=== PATIENT | female | born 1980 ===

== ENCOUNTER 2020-05-31 11:28 | Outpatient (REF) | payer OTHER, SELFPAY ==
[2020-05-31 13:49] LABS: MANUAL DIFF FLAG NO
[2020-05-31 13:58] LABS: Basophils Percent Auto 0.6 % (0-2); Eosinophils Absolute Auto 0.2 X10*3/uL (0.0-0.4); Eosinophils Percent Auto 3.6 % (0-4); Hematocrit 37.5 % (37-47); Hemoglobin 12.3 g/dl (12.0-16.0); Imm Gran Abs Auto 0.01 X10*3/uL (0.00-0.03); Imm Gran Pct Auto 0.2 % (0.0-0.4); Lymphocytes Absolute Auto 1.8 X10*3/uL (1.2-4.9); Lymphocytes Percent Auto 27.3 % (20-40); Mean Corpuscular HGB Conc 32.8 g/dl (31.0-35.0); Mean Corpuscular Hemoglobin 28.7 pg (27.0-33.0); Mean Corpuscular Volume 87.6 fL (80-98); Monocytes Absolute Auto 0.6 X10*3/uL (0.1-1.2); Monocytes Percent Auto 9.7 % (2-11); Neutrophils Absolute Auto 3.9 X10*3/uL (2.0-8.3); Neutrophils Percent Auto 58.6 % (45-73); Platelet Count 299 X10*3/uL (160-400); Red Blood Count 4.28 X10*6/uL (4.20-5.50); Red Cell Distribution Width 13.7 % (11.0-16.0); White Blood Count 6.6 X10*3/uL (4.8-10.8)
[2020-05-31 14:12] LABS: Glucose Urine UA NEG (NEG); Leukocyte Esterase Urine NEG (NEG); Nitrite Urine NEG (NEG); Specific Gravity - Urine 1.025 (1.005-1.025); Urine Blood 1+ (NEG); Urine Ketones NEG (NEG); Urine Protein NEG (NEG-TRACE)
[2020-05-31 14:15] LABS: Appearance Urine CLEAR; Color Urine YELLOW
[2020-05-31 14:30] LABS: Alanine Aminotransferase 15 U/L (0-31); Alkaline Phosphatase 57 U/L (39-117); Anion Gap 10 (12-20); Aspartate Amino Transferase 13 U/L (5-31); Bilirubin Total 0.2 mg/dL (0.0-1.0); Blood Urea Nitrogen 11 mg/dL (9-16); C Reactive Protein 0.08 mg/dL (< or = 0.50); Calcium 8.2 mg/dL (8.4-10.2); Carbon Dioxide 25 mmol/L (22-29); Chloride 105 mmol/L (96-108); Estimated Glomerular Filt Rate > 60; Glucose Fasting 102 mg/dL (60-99); Lipase 29 U/L (8-78); Potassium 4.3 mmol/l (3.3-5.1); Sodium 136 mmol/L (135-145); Total Protein 6.5 g/dL (6.5-8.0)
[2020-05-31 14:33] LABS: Squamous Epithelial Cell Urine 1+ /LPF; WBC Urine 0-2 /HPF (0-4)
== END 2020-05-31 11:29 | disposition home or self-care (01) ==
LOC: HO.10HDL 11:28
PROVIDERS: PCP Internal Medicine; Visit Provider Internal Medicine
DX: R10.9 Unspecified abdominal pain (principal); R30.0 Dysuria
CPT/HCPCS: 36415; 80053; 81001; 83690; 85025; 86140; 87086

== ENCOUNTER 2020-06-02 15:09 | Outpatient (REF) | payer OTHER, SELFPAY ==
[2020-06-04 12:01] LABS: BV Int Neg Control Negative (Negative); BV Int Pos Control Positive (Positive)
== END 2020-06-02 15:10 | disposition home or self-care (01) ==
LOC: HO.LAB 15:09
PROVIDERS: PCP Internal Medicine; Visit Provider Advanced Practice Midwife
DX: R10.2 Pelvic and perineal pain (principal); R11.0 Nausea; N93.9 Abnormal uterine and vaginal bleeding, unspecified; Z11.8 Encounter for screening for other infectious and parasitic diseases; Z11.3 Encounter for screening for infections with a predominantly sexual mode of transmission
CPT/HCPCS: 81025; 87480; 87491; 87510; 87591; 87660; 99212

== ENCOUNTER 2020-06-21 15:05 | Outpatient (REF) | payer OTHER, SELFPAY ==
--- NOTE | 2020-06-21 15:08 | US_ITS ---
EXAMINATION: ULTRASOUND PELVIS COMPLETE CLINICAL INFORMATION: Pelvic and perineal pain. COMPARISON: None TECHNIQUE: Transabdominal and transvaginal ultrasound of the pelvis is performed. FINDINGS: The uterus is anteverted and anteflexed measuring 8.3 cm in length, 5.0 cm AP and 5.9 cm in transverse dimension. Endometrial thickness is 0.9 cm. The uterus is homogeneous echotexture. The cervix is unremarkable. Right ovary measures 3.2 x 2.1 x 2.4 cm and volume 8.5 mL. Previously right ovary measured 3.5 x 3.0 x 1.8 cm and volume 10 mL. Left ovary measures 3.9 x 2.5 x 2.1 cm and volume 10.7 mL. There is a small corpus luteal cyst measuring 1.5 x 1.3 x 1.4 cm. Also visualized are several small follicles. There is small amount of free fluid in left adnexa. US/US pelvic complete IMPRESSION: 1. Small corpus luteal cyst left ovary with minimal free fluid adjacent to the left ovary. 2. Unremarkable right ovary and uterus.
--- NOTE | 2020-06-21 15:08 | US_ITS ---
EXAMINATION: ULTRASOUND PELVIS COMPLETE CLINICAL INFORMATION: Pelvic and perineal pain. COMPARISON: None TECHNIQUE: Transabdominal and transvaginal ultrasound of the pelvis is performed. FINDINGS: The uterus is anteverted and anteflexed measuring 8.3 cm in length, 5.0 cm AP and 5.9 cm in transverse dimension. Endometrial thickness is 0.9 cm. The uterus is homogeneous echotexture. The cervix is unremarkable. Right ovary measures 3.2 x 2.1 x 2.4 cm and volume 8.5 mL. Previously right ovary measured 3.5 x 3.0 x 1.8 cm and volume 10 mL. Left ovary measures 3.9 x 2.5 x 2.1 cm and volume 10.7 mL. There is a small corpus luteal cyst measuring 1.5 x 1.3 x 1.4 cm. Also visualized are several small follicles. There is small amount of free fluid in left adnexa. US/US transvaginal IMPRESSION: 1. Small corpus luteal cyst left ovary with minimal free fluid adjacent to the left ovary. 2. Unremarkable right ovary and uterus.
== END 2020-06-21 15:06 | disposition home or self-care (01) ==
LOC: HO.US 15:05
PROVIDERS: Visit Provider Advanced Practice Midwife
DX: R10.2 Pelvic and perineal pain (principal)
CPT/HCPCS: 76830; 76856

== ENCOUNTER → 2020-06-30 15:10 | Outpatient (BNVA) | payer OTHER, SELFPAY | PROVIDERS: PCP Internal Medicine; Visit Provider Advanced Practice Midwife | DX: Z76.89 Persons encountering health services in other specified circumstances (principal) ==

== ENCOUNTER 2020-08-08 11:00 | Outpatient (REF) | payer OTHER, SELFPAY ==
[2020-08-09 09:20] LABS: BV Int Neg Control Negative (Negative); BV Int Pos Control Positive (Positive)
[2020-08-09 14:52] LABS: C. trachomatis RNA TMA NOT DETECTED (NOT DETECTED); N. gonorrhoeae RNA TMA NOT DETECTED (NOT DETECTED)
== END 2020-08-08 11:01 | disposition home or self-care (01) ==
LOC: HO.LAB 11:00
PROVIDERS: PCP Internal Medicine; Visit Provider Advanced Practice Midwife
DX: Z01.419 Encounter for gynecological examination (general) (routine) without abnormal findings (principal); Z20.2 Contact with and (suspected) exposure to infections with a predominantly sexual mode of transmission; N94.9 Unspecified condition associated with female genital organs and menstrual cycle; N39.3 Stress incontinence (female) (male); R10.2 Pelvic and perineal pain; N83.209 Unspecified ovarian cyst, unspecified side; Z88.6 Allergy status to analgesic agent; Z91.040 Latex allergy status
CPT/HCPCS: 36415; 81003; 87480; 87491; 87510; 87591; 87660

== ENCOUNTER → 2020-11-10 13:52 | Outpatient (BNVA) | payer OTHER, SELFPAY | PROVIDERS: PCP Internal Medicine; Visit Provider Urology ==

== ENCOUNTER → 2020-12-05 10:48 | Outpatient (BNVA) | payer OTHER, SELFPAY | PROVIDERS: PCP Internal Medicine; Visit Provider Advanced Practice Midwife ==

== ENCOUNTER 2021-02-01 13:28 | Emergency (ER) | payer OTHER, SELFPAY ==
[2021-02-01 13:41] VITALS: BP 113/66; PULSE 68; RESP 16; TEMP 36.8; O2SAT 98; BMI 26.5
--- NOTE | 2021-02-01 14:28 | ED.GENADULT ---
HPI - General Adult General Chief complaint: Skin/Abscess/Foreign Body Stated complaint: cyst Time Seen by Provider: 02/01/21 14:28 Source: patient Mode of arrival: ambulatory Limitations: no limitations History of Present Illness HPI narrative: 41-year-old female is here today for complaints of draining abscess from her left labia for the last few days. Patient reports that she has been having those problems before. Patient used warm soaks and drained some of the past. Patient denies any fever or chills. Patient denies any other symptoms. She reports that the area is very small. Onset (ago): day(s) (Three) Location: genitals (Left labia) Radiation: non-radiation Severity: mild Quality: burning Pain Consistency: intermittent Related Data Home Medications Medication Instructions Recorded Confirmed doxycycline hyclate 100 mg capsule 100 mg PO BID 06/02/20 Previous Rx's Medication Instructions Recorded metronidazole 500 mg tablet 500 mg PO BID 7 Days #14 tab 06/05/20 (Flagyl) metronidazole 500 mg tablet 500 mg PO BID 7 Days #14 tab 09/11/20 (Flagyl) cephalexin 500 mg capsule 500 mg PO QID 7 Days #28 cap 02/01/21 doxycycline hyclate 100 mg capsule 100 mg PO BID #14 cap 02/01/21 Allergies Allergy/AdvReac Type Severity Reaction Status Date / Time NSAIDS (Non-Steroidal Allergy Severe ANGIOEDEMA Verified 12/05/20 10:57 Anti-Inflamma [NSAIDS] aspirin [ASPIRIN] Allergy Intermediate SWELLING, Verified 12/05/20 10:57 anaphylaxis latex [LATEX] Allergy Intermediate RASH Verified 12/05/20 10:57 Review of Systems Review of Systems: Constitutional : No Weight loss, No Fever, No Chills, No Night Sweats, No Fatigue, No Malaise ENT/Mouth : No Hearing loss, No Ear Pain, No Nasal Congestion, No Sinus Pain, No Hoarseness, No sore throat, No Rhinorrhea, No Swallowing Difficulty Eyes: No Eye Pain, No Swelling, No Redness, No Foreign Body, No Discharge, No Vision Changes Cardiovascular : No Chest Pain, No SOB, No Dyspnea on Exertion, No Orthopnea, No Edema, No Palpitations Respiratory : No Cough, No Sputum, No Wheezing, No Smoke Exposure, No Dyspnea Gastrointestinal : No Nausea, No Vomiting, No Diarrhea, No Constipation, No abdominal Pain, No Hematochezia, No Melena Genitourinary : no irregular bleeding, No Dysuria, No Urinary Frequency, No Hematuria, No Urinary Incontinence, No Urgency, No Flank Pain, No Urinary Flow Changes, No Hesitancy, vaginal pain Musculoskeletal : No joint pain, No Myalgias, No Joint Swelling Skin : No Skin Lesions, No rash Yes all other systems are reviewed and are negative PMFSH Past Medical History Medical History Ruptured cyst of ovary Stress incontinence, female Surgical History History of loop electrical excision procedure (LEEP) Hx of dilation and curettage Hx of tubal ligation Family History Family History Paternal Grandmother Colon cancer Social History Social History Alcohol intake: never Advance Directives: Yes Advance Directives Information Provided: Yes Advance Directives on File: No Patient : No Sexual orientation: Straight/Heterosexual Physical Exam Vital Signs: Vital Signs: Last Vital Signs Temp 98.3 F 02/01/21 13:41 Pulse 68 02/01/21 13:41 Resp 16 02/01/21 13:41 BP 113/66 02/01/21 13:41 Pulse Ox 98 02/01/21 13:41 Body Mass Index 26.5 Const: General: healthy appearing, no acute distress and well developed Nutritional Appearance: well nourished Orientation/consciousness: patient oriented x3 Neck: Neck: Yes normal visual inspection, Yes full ROM and Yes trachea midline Thyroid: Thyroid normal Resp: Auscultation: clear to auscultation bilaterally Cardio: Rate: regular rate Rhythm: regular rhythm GI: Inspection: Yes normal to inspection and No distended Palpation (GI): No hepatosplenomegaly present Auscultation: normal bowel sounds : Speculum Exam - Vagina: other (Left labia abscess draining) Skin: General skin exam: elasticity normal, turgor normal and dry skin Neuro: General: patient oriented x3 Course Course Course Narrative: Left labial abscess that started 3 days ago. Patient reports that she was soaking it with warm water. She reports that the abscess was straining. 0.8 cm area with open center. On exam abscess is not draining hard and area is open. This abscess is too small to get I&D. Patient will be sent home with antibiotics and instructions to do warm soaks. She is agreeable to plan of care and verbalizes understanding of instructions. She was given the opportunity to ask questions all questions answered. Discharge Plan Discharge Clinical Impression: Abscess of skin or subcutaneous tissue Qualifiers: Site of cutaneous abscess: other site Qualified Code(s): L02.818 - Cutaneous abscess of other sites Patient Disposition: Home, Self-Care Instructions: Abscess (ED) Additional Instructions: You were seen here today for small abscess that is already draining. Please make sure that you do frequent warm soaks to promote the drainage. You were given 1st dose of antibiotic in the emergency department. Please follow-up with your PCP in 2-3 days if your symptoms will not get better or return to emergency department. You will also receive a script for antibiotics. Please finish all of the antibiotics. You may return to emergency department if your symptoms will get worse or if your experience any additional concerning symptoms. Prescriptions: New doxycycline hyclate 100 mg capsule 100 mg PO BID Qty: 14 RF: 0 cephalexin 500 mg capsule 500 mg PO QID 7 Days Qty: 28 RF: 0 No Action metronidazole [Flagyl] 500 mg tablet 500 mg PO BID 7 Days Qty: 14 RF: 0 metronidazole [Flagyl] 500 mg tablet 500 mg PO BID 7 Days Qty: 14 RF: 0 doxycycline hyclate 100 mg capsule 100 mg PO BID RF: 0 Referrals: Tra Diana MD [Primary Care Provider] - 2 days Interventions: ED Discharge Assessment Last Done: 02/01/21 14:59 Discharge Date/Time: 02/01/21 14:59
[2021-02-01] MEDS: cephALEXin 500 MG CAPSULE PO (14:57)
== END 2021-02-01 14:59 | disposition home or self-care (01) ==
PROVIDERS: Emergency Provider Internal Medicine; PCP Internal Medicine
DX: L02.818 Cutaneous abscess of other sites (principal)
CPT/HCPCS: 99283

== ENCOUNTER 2021-03-05 12:31 | Emergency (ER) | payer OTHER, SELFPAY | END 2021-03-05 17:14 | disposition left against medical advice (07) | PROVIDERS: Emergency Provider Emergency Medicine Emergency Medical Services; PCP Internal Medicine | DX: H92.03 Otalgia, bilateral (principal) ==

== ENCOUNTER 2021-05-01 15:27 | Outpatient (REF) | payer OTHER, SELFPAY ==
[2021-05-01 15:45] LABS: MANUAL DIFF FLAG NO
[2021-05-01 16:24] LABS: Basophils Percent Auto 0.5 % (0-2); Eosinophils Absolute Auto 0.2 X10*3/uL (0.0-0.4); Eosinophils Percent Auto 1.9 % (0-4); Hematocrit 38.6 % (37.0-47.0); Imm Gran Abs Auto 0.02 X10*3/uL (0.00-0.03); Imm Gran Pct Auto 0.3 % (0.0-0.4); Lymphocytes Absolute Auto 2.1 X10*3/uL (1.2-4.9); Lymphocytes Percent Auto 26.7 % (20-40); Mean Corpuscular HGB Conc 33.7 g/dl (31.0-35.0); Mean Corpuscular Volume 88.9 fL (80.0-98.0); Mean Platelet Volume 9.8 fL (9.4-12.3); Monocytes Absolute Auto 0.7 X10*3/uL (0.1-1.2); Monocytes Percent Auto 8.7 % (2-11); Neutrophils Absolute Auto 4.8 x10*3/uL (2.0-8.3); Neutrophils Percent Auto 61.9 % (45-73); Platelet Count 314 X10*3/uL (160-400); Red Blood Count 4.34 X10*6/uL (4.20-5.50); Red Cell Distribution Width 12.9 % (11.0-16.0); White Blood Count 7.7 X10*3/uL (4.8-10.8)
[2021-05-01 16:27] LABS: Appearance Urine CLEAR; Color Urine YELLOW; Glucose Urine UA NEG (NEG); Leukocyte Esterase Urine TRACE (NEG); Nitrite Urine NEG (NEG); PH 7.5 (5.0-8.0); Specific Gravity - Urine 1.015 (1.005-1.025); UACC Culture Trigger YES; Urine Blood NEG (NEG); Urine Ketones NEG (NEG); Urine Protein NEG (NEG-TRACE)
[2021-05-01 16:39] LABS: UACC CULT YES
[2021-05-01 16:41] LABS: RBC Urine 0-2 /HPF (0); Squamous Epithelial Cell Urine TRACE /LPF
[2021-05-01 16:43] LABS: Bacteria Urine TRACE /LPF
[2021-05-01 18:06] LABS: Anion Gap 10 (12-20); Blood Urea Nitrogen 15 mg/dL (9-16); C Reactive Protein 0.17 mg/dL (< or = 0.50); Calcium 8.9 mg/dL (8.4-10.2); Carbon Dioxide 27 mmol/L (22-29); Chloride 103 mmol/L (96-108); Estimated Glomerular Filt Rate > 60; Glucose Random 83 mg/dL (60-115); Potassium 4.1 mmol/L (3.3-5.1); Sodium 136 mmol/L (135-145)
== END 2021-05-01 15:28 | disposition home or self-care (01) ==
LOC: HO.LAB 15:27
PROVIDERS: PCP Internal Medicine; Visit Provider Internal Medicine
DX: R10.9 Unspecified abdominal pain (principal); R30.0 Dysuria
CPT/HCPCS: 36415; 80048; 81001; 85025; 86140; 87086

== ENCOUNTER 2021-05-02 13:43 | Outpatient (REF) | payer OTHER, SELFPAY ==
--- NOTE | ~2021-05-02 | US_ITS ---
EXAMINATION: US PELVIC US TRANSVAGINAL CLINICAL INFORMATION: Right lower quadrant pain. COMPARISON: Pelvic ultrasound 06/21/2020. TECHNIQUE: Ultrasound of the pelvis is performed using both transabdominal and transvaginal transducers along with Doppler. Transvaginal imaging is performed due to inadequate visualization transabdominally. FINDINGS: Uterus: The uterus is anteverted and measures 8.1 x 3.4 x 5.1 cm. The double wall endometrial thickness is 10-14 mm. The uterus is smooth in contour and has normal myometrial echogenicity. No visible fibroid. Adnexa: Both ovaries are visualized. There is normal color flow to the adnexa. There is no ovarian torsion. There is no pelvic ascites or fluid collection. Right ovary measures 3.0 x 2.0 x 1.7 cm for volume of 5.3 mL. Left ovary measures 4.0 x 2.0 x 2.0 cm for a volume of 8.4 mL which includes an echogenic 1.6 x 1.4 x 1.5 cm probable corpus luteum cyst. US/US pelvic and transvaginal IMPRESSION: No significant abnormality is seen. A corpus luteal cyst is noted in the left ovary. A similar sized cyst was noted on the left at the time of the prior study.
== END 2021-05-02 13:44 | disposition home or self-care (01) ==
LOC: HO.US 13:43
PROVIDERS: PCP Internal Medicine; Visit Provider Internal Medicine
DX: R10.31 Right lower quadrant pain (principal)
CPT/HCPCS: 76830; 76856

== ENCOUNTER 2021-05-07 13:28 | Outpatient (REF) | payer OTHER, SELFPAY ==
[2021-05-08 05:31] LABS: CT PCR NOT DETECTED (Not Detect.); NG PCR NOT DETECTED (Not Detect.)
[2021-05-08 09:22] LABS: BV Int Neg Control Negative (Negative); BV Int Pos Control Positive (Positive)
== END 2021-05-07 13:29 | disposition home or self-care (01) ==
LOC: HO.LAB 13:28
PROVIDERS: PCP Internal Medicine; Visit Provider Advanced Practice Midwife
DX: R10.2 Pelvic and perineal pain (principal); N73.9 Female pelvic inflammatory disease, unspecified
CPT/HCPCS: 81003; 81025; 87480; 87491; 87510; 87591; 87660; 96372; 99212; J0696

== ENCOUNTER → 2021-06-01 13:59 | Outpatient (BNVA) | payer OTHER, SELFPAY | PROVIDERS: PCP Internal Medicine; Visit Provider Advanced Practice Midwife | DX: N73.9 Female pelvic inflammatory disease, unspecified (principal) | CPT/HCPCS: 81003; 99212 ==

== ENCOUNTER 2021-08-13 13:46 | Outpatient (REF) | payer OTHER, SELFPAY ==
[2021-08-14 05:20] LABS: CT PCR NOT DETECTED (Not Detect.); NG PCR NOT DETECTED (Not Detect.)
[2021-08-14 09:43] LABS: BV Int Neg Control Negative (Negative); BV Int Pos Control Positive (Positive)
[2021-08-16 01:46] LABS: HPV mRNA E6/E7 rflx Not Detected (Not Detected)
== END 2021-08-13 13:47 | disposition home or self-care (01) ==
LOC: HO.LAB 13:46
PROVIDERS: PCP Internal Medicine; Visit Provider Advanced Practice Midwife
DX: Z01.411 Encounter for gynecological examination (general) (routine) with abnormal findings (principal); Z11.51 Encounter for screening for human papillomavirus (HPV); R10.2 Pelvic and perineal pain; Z20.2 Contact with and (suspected) exposure to infections with a predominantly sexual mode of transmission
CPT/HCPCS: 87480; 87491; 87510; 87591; 87624; 87660; 88142

== ENCOUNTER 2021-09-12 11:32 | Outpatient (REF) | payer OTHER, SELFPAY ==
--- NOTE | ~2021-09-12 | US_ITS ---
EXAMINATION: US PELVIS CLINICAL INFORMATION: Pelvic and perineal pain COMPARISON: None TECHNIQUE: Ultrasound of the pelvis is performed using both transabdominal and transvaginal transducers along with Doppler. Transvaginal imaging is performed due to inadequate visualization transabdominally. FINDINGS: Uterus: The uterus is anteverted, anteflexed and measures 8.2 cm in length, 4.9 mL in AP and 5.1 cm in transverse dimension. The double wall endometrial thickness is 1.3 cm. The uterus is smooth in contour and has normal myometrial echogenicity. No visible fibroid. Adnexa: Both ovaries are visualized. There is normal color flow to the adnexa. There is no ovarian torsion. There is no pelvic ascites or fluid collection. Right ovary measures 3.4 x 1.6 x 2.2 cm and volume 6.3 mL. Previously right ovary measured 3.0 x 2.0 was 1.7 cm. Left ovary measures 3.6 x 1.4 x 2.5 CM and volume 6.6 mL. There is anechoic cyst measuring 1.1 x 1.1 x 1.0 cm. There is small amount of free fluid in the cul-de-sac. US/US pelvic and transvaginal IMPRESSION: 1.1 cm cyst left ovary. The right ovary and the uterus is unremarkable. Small amount of free fluid in the cul-de-sac.
== END 2021-09-12 11:33 | disposition home or self-care (01) ==
LOC: HO.US 11:32
PROVIDERS: Visit Provider Advanced Practice Midwife
DX: R10.2 Pelvic and perineal pain (principal)
CPT/HCPCS: 76830; 76856

== ENCOUNTER → 2021-09-26 11:24 | Outpatient (BNVA) | payer OTHER, SELFPAY | PROVIDERS: PCP Internal Medicine; Visit Provider Advanced Practice Midwife | DX: Z13.89 Encounter for screening for other disorder (principal) ==

== ENCOUNTER 2022-01-29 15:00 | Outpatient (REF) | payer OTHER, SELFPAY ==
--- NOTE | ~2022-01-29 | MM_ITS ---
EXAMINATION: MM SCREENING DIGITAL BREAST TOMOSYNTHESIS, BILATERAL CLINICAL INFORMATION: Screening. Asymptomatic. The lifetime risk of breast cancer based on the Tyrer-Cuzick Model is 14%. COMPARISON: Mammography: None TECHNIQUE: Digital breast tomosynthesis is performed in both the craniocaudal and mediolateral oblique views along with computer-aided detection (CAD). Synthesized 2D images are generated from the tomosynthesis. FINDINGS: There are scattered areas of fibroglandular density (ACR BI-RADS breast composition Category b). There are no significant masses, abnormal calcifications, or other abnormalities. MM/MM tomosynthesis screening BI IMPRESSION: No mammographic evidence of malignancy. ASSESSMENT: BI-RADS 1: Negative RECOMMENDATION: Routine annual mammography screening. This patient's information was entered into a reminder system with a target due date for their next mammogram.
== END 2022-01-29 15:01 | disposition home or self-care (01) ==
LOC: HO.MAMMO 15:00
PROVIDERS: Visit Provider Internal Medicine
DX: Z12.31 Encounter for screening mammogram for malignant neoplasm of breast (principal)
CPT/HCPCS: 77063; 77067

== ENCOUNTER 2022-02-08 23:46 | Emergency (ER) | payer OTHER, SELFPAY ==
[2022-02-08 23:50] VITALS: BP 136/45; PULSE 83; RESP 18; TEMP 36.6; O2SAT 99; BMI 31.4
[2022-02-09 00:25] LABS: Hematocrit 36.7 % (37.0-47.0); Hemoglobin 12.7 g/dl (12.0-16.0); Mean Corpuscular HGB Conc 34.6 g/dl (31.0-35.0); Mean Corpuscular Hemoglobin 30.7 pg (27.0-33.0); Mean Corpuscular Volume 88.6 fL (80.0-98.0); Mean Platelet Volume 9.4 fL (9.4-12.3); Platelet Count 316 X10*3/uL (160-400); Red Blood Count 4.14 X10*6/uL (4.20-5.50); Red Cell Distribution Width 13.2 % (11.0-16.0); White Blood Count 9.5 X10*3/uL (4.8-10.8)
[2022-02-09 00:48] LABS: Alanine Aminotransferase 14 U/L (0-31); Albumin Level 4.1 g/dL (3.5-5.0); Alkaline Phosphatase 55 U/L (39-117); Anion Gap 15 (12-20); Aspartate Amino Transferase 14 U/L (5-31); Bilirubin Total 0.3 mg/dL (0.0-1.0); Blood Urea Nitrogen 12 mg/dL (9-16); Carbon Dioxide 23 mmol/L (22-29); Chloride 105 mmol/L (96-108); Creatinine Clr Calc Pharmacy 88.6; Estimated Glomerular Filt Rate > 60; Glucose Random 111 mg/dL (60-115); Potassium 3.8 mmol/L (3.3-5.1); Sodium 139 mmol/L (135-145); Total Protein 6.6 g/dL (6.5-8.0)
[2022-02-09 01:40] VITALS: BP 111/64; PULSE 64; RESP 16; TEMP 36.9; O2SAT 97
--- NOTE | 2022-02-09 02:17 | PC.NURSE ---
This pt left the ED at this time. I noticed her ambulating out of the department and stopped her to ask where she was going. She replied I've been sitting over there ([facility]) for hours (pt was placed in [facility] 19 minutes prior to this conversation) and I am in severe pain and sean has asked me how bad my pain is so Im leaving and I'll deal with the pain. I spent a lot of time encouraging the pt to remain in the ED for an evaluation but she insisted on leaving. i attempted to calmly explain to hr what she could expect next and why she hasn't seen a nurse yet, but she persistently talked over me, waved her hand in ym face and walked out of the department. Her gait was steady. her speech was clear and appropriate. No distress. No objective evidence of severe back pain while ambulating out of the ED.
== END 2022-02-09 02:20 | disposition left against medical advice (07) ==
PROVIDERS: Emergency Provider Emergency Medicine
DX: R10.9 Unspecified abdominal pain (principal)
CPT/HCPCS: 36415; 80053; 85027; 99283

== ENCOUNTER 2022-05-25 13:56 | Emergency (ER) | payer OTHER, SELFPAY ==
--- NOTE | ~2022-05-25 | XR_ITS ---
EXAMINATION: XR HAND, LEFT CLINICAL INFORMATION: Left hand pain. COMPARISON: None TECHNIQUE: PA, lateral, and oblique views of the left hand. An indicator arrow points to the first digit. FINDINGS: The bones and soft tissues are normal. No fracture. Alignment is anatomic. Joint spaces are maintained. No erosions or soft tissue calcifications. XR/XR hand LT min 3V IMPRESSION: Unremarkable left hand.
[2022-05-25 14:15] VITALS: PULSE 69; RESP 16; TEMP 36.8; O2SAT 98; BMI 23.6
--- NOTE | 2022-05-25 14:15 | ED_ITS ---
HPI - Skin/Abscess/Foreign Bdy General Chief complaint: Wound/Laceration <AMY Burr - Last Filed: 05/25/22 14:17> Stated complaint: l hand laceration at home <AMY Burr - Last Filed: 05/25/22 14:17> Time Seen by Provider: 05/25/22 15:14 <AMY Burr - Last Filed: 05/25/22 14:17> Source: patient <Arelis Soler NP - Last Filed: 05/25/22 17:04> Mode of arrival: ambulatory <Arelis Soler NP - Last Filed: 05/25/22 17:04> Limitations: no limitations <Arelis Soler NP - Last Filed: 05/25/22 17:04> History of Present Illness HPI narrative: 42-year-old female with no significant past medical history presents to the emergency department today after cutting her left hand with a knife opening a can. She denies any numbness or tingling in the left thumb or palmar region of the hand. She is unsure of last tetanus. <Arelis Soler NP - Last Filed: 05/25/22 17:04> MD complaint: laceration <Arelis Soler NP - Last Filed: 05/25/22 17:04> Onset (ago): hour(s) <Arelis Soler NP - Last Filed: 05/25/22 17:04> Tetanus up to date: unsure <Arelis Soler NP - Last Filed: 05/25/22 17:04> Location: L hand <Arelis Soler NP - Last Filed: 05/25/22 17:04> Severity: mild <Arelis Soler NP - Last Filed: 05/25/22 17:04> Severity scale (1-10): 3 <Arelis Soler NP - Last Filed: 05/25/22 17:04> Quality: aching <Arelis Soler NP - Last Filed: 05/25/22 17:04> Pain Consistency: constant <ANGELICA Baker Last Filed: 05/25/22 17:04> Relieving factors: none <Arelis Soler NP - Last Filed: 05/25/22 17:04> Exacerbating factors: palpation and movement <Arelis Soler NP - Last Filed: 05/25/22 17:04> Context: none <Arelis Soler NP - Last Filed: 05/25/22 17:04> Treatments prior to arrival: none <Arelis Soler NP - Last Filed: 05/25/22 17:04> Related Data Home medications: Home Medications Medication Instructions Recorded Confirmed No Known Home Meds 09/26/21 09/26/21 <AMY Burr - Last Filed: 05/25/22 14:17> Allergies/Adverse reactions: Allergies Allergy/AdvReac Type Severity Reaction Status Date / Time NSAIDS (Non-Steroidal Allergy Severe ANGIOEDEMA Verified 09/26/21 11:24 Anti-Inflamma [NSAIDS] aspirin [ASPIRIN] Allergy Intermediate SWELLING, Verified 09/26/21 11:24 anaphylaxis latex [LATEX] Allergy Intermediate RASH Verified 09/26/21 11:24 metronidazole Allergy rash Verified 09/26/21 11:24 <AMY Burr Last Filed: 05/25/22 14:17> Review of Systems Review of Systems: In addition to documented HPI above, the additional ROS was obtained: Constitutional: No Weight loss, No Fever, No Chills ENT/Mouth: No Ear Pain, No Nasal Congestion, No Sinus Pain, No Hoarseness, No sore throat, No Rhinorrhea, No Swallowing Difficulty Cardiovascular: No Chest Pain, No SOB Respiratory: No Cough, No Sputum, No Wheezing Gastrointestinal: No Nausea, No Vomiting, No Diarrhea, No Constipation, No Abdominal pain Genitourinary: No Dysuria, No Urinary Frequency, No Hematuria, No Urinary Incontinence/retention, No Urgency, No Flank Pain Musculoskeletal: No joint pain, No Myalgias, No Joint Swelling Skin: No Skin Lesions, No rash Neuro: No Weakness, No Numbness, No Paresthesias <ANGELICA Baker Last Filed: 05/25/22 17:04> Yes all other systems are reviewed and are negative <Arelis Soler NP - Last Filed: 05/25/22 17:04> [facility] Past Medical History Attestation statement: The following information was validated with the patient. <Arelis Soler NP - Last Filed: 05/25/22 17:04> Source: old records reviewed and obtained from family <Arelis Soler NP - Last Filed: 05/25/22 17:04> Medical History: Medical History Ruptured cyst of ovary Stress incontinence, female <AMY Burr - Last Filed: 05/25/22 14:17> Surgical History: Surgical History History of loop electrical excision procedure (LEEP) Hx of dilation and curettage Hx of tubal ligation <AYM Burr - Last Filed: 05/25/22 14:17> Family History Family History: Family History Paternal Grandmother Colon cancer <AMY Burr - Last Filed: 05/25/22 14:17> Social History Social History: Social History Alcohol intake: never Advance Directives: No Advance Directives Information Provided: No Sexual orientation: Straight/Heterosexual <AMY Burr - Last Filed: 05/25/22 14:17> Physical Exam Vital Signs: Vital Signs: Last Vital Signs Temp 98.2 F 05/25/22 14:15 Pulse 69 05/25/22 14:15 Resp 16 05/25/22 14:15 Pulse Ox 98 05/25/22 14:15 O2 Del Method 05/25/22 14:15 BMI result Body Mass Index 23.6 <AMY Burr - Last Filed: 05/25/22 14:17> Vital Signs: Last Vital Signs Temp 98.2 F 05/25/22 14:15 Pulse 69 05/25/22 14:15 Resp 16 05/25/22 14:15 Pulse Ox 98 12/10/22 14:15 O2 Del Method 05/25/22 14:15 BMI result Body Mass Index 23.6 <Arelis Soler [employer] - Last Filed: 05/25/22 17:04> Const: General: cooperative, alert and awake <Arelis Soler [employer] - Last Filed: 05/25/22 17:04> Nutritional Appearance: well nourished <Arelis Soler [employer] - Last Filed: 05/25/22 17:04> Orientation/consciousness: patient oriented x3 <Arelis Soler [employer] - Last Filed: 05/25/22 17:04> Limitations: no limitations <Arelis Soler [employer] - Last Filed: 05/25/22 17:04> HEENT: Head: Yes normal to inspection and Yes atraumatic <Arelis Soler [employer] - Last Filed: 05/25/22 17:04> Ears: hearing grossly normal bilaterally and external ears normal <Arelis Soler [employer] - Last Filed: 05/25/22 17:04> General nose exam: Normal external nose present <Arelis Soler [employer] - Last Filed: 05/25/22 17:04> Face and sinus: Yes normal facial exam <Arelis Soler [employer] - Last Filed: 05/25/22 17:04> Eyes: General: appearance normal, both eyes and all related structures <Arelis Soler [employer] - Last Filed: 05/25/22 17:04> Visual Edwards: normal visual edwards by confrontation <Arelis Soler [employer] - Last Filed: 05/25/22 17:04> Alignment and Position: alignment normal <Arelis Soler [employer] - Last Filed: 05/25/22 17:04> Periorbital: periorbital findings normal <Arelis Soler [employer] - Last Filed: 05/25/22 17:04> Eyelids: Yes eyelids normal <Arelis Soler [employer] - Last Filed: 05/25/22 17:04> Conjunctivae: conjunctivae normal <Arelis Soler [employer] - Last Filed: 05/25/22 17:04> Sclerae: sclerae normal <Arelis Soler [employer] - Last Filed: 05/25/22 17:04> Corneas: corneas normal <Arelis Soler [employer] - Last Filed: 05/25/22 17:04> Pupils: Equal, round and reactive pupils present <Arelis Soler, [employer] - Last Filed: 05/25/22 17:04> EOM: EOMs intact bilaterally <Arelis Soler, [employer] - Last Filed: 05/25/22 17:04> Neck: Neck: Yes normal visual inspection and Yes full ROM <Arelis Soler [employer] - Last Filed: 05/25/22 17:04> Chest: Chest palpation & inspection: normal inspection of the chest <Arelis Soler [employer] - Last Filed: 05/25/22 17:04> Resp: Effort & Inspection: normal respiratory effort and not labored <Arelis Soler [employer] - Last Filed: 05/25/22 17:04> Auscultation: clear to auscultation bilaterally, no crackles, no rhonchi and no wheezes <Arelis Soler [employer] - Last Filed: 05/25/22 17:04> Cardio: Rate: regular rate <Arelis Soler [employer] - Last Filed: 05/25/22 17:04> Rhythm: regular rhythm <Arelis Soler [employer] - Last Filed: 05/25/22 17:04> Skin: General skin exam: no rashes or lesions noted <Arelis Soler, N P - Last Filed: 05/25/22 17:04> Trauma: laceration (Web space between thumb and forefinger) <Arelis Soler [employer] - Last Filed: 05/25/22 17:04> Neuro: General: patient oriented x3 <Arelis Soler, [employer] - Last Filed: 05/25/22 17:04> Cranial nerves: Yes Equal, round and reactive pupils present <Arelis Soler [employer] - Last Filed: 05/25/22 17:04> Cognition (Neuro): normal cognition <Arelis Soler NP - Last Filed: 05/25/22 17:04> Gait exam (Neuro): Normal gait present <Arelis Soler NP - Last Filed: 05/25/22 17:04> Motor exam (neuro): 5/5 motor strength present throughout <Arelis Soler NP - Last Filed: 05/25/22 17:04> Extrem: General: Yes normal to inspection, Yes full ROM and Yes capillary refill normal <Arelis Soler NP - Last Filed: 05/25/22 17:04> Course Course Course Narrative: RME: 42-year-old female no significant medical history presents with a puncture wound to the left web space between 1st and 2nd digit. Patient is right-hand dominant. Tells me she was opening can of cherries and stabbed herself with a knife accidentally. Denies numbness and tingling. Tetanus status unknown however she thinks been more than 5 years Physical exam with puncture wound between 1st and 2nd finger in webspace. Point tenderness on exam. Plan: Due to point tenderness will obtain x-ray of left hand. Boostrix shot has been ordered. I suspect this will likely require wound suture. Patient sent back to waiting room <AMY Burr - Last Filed: 05/25/22 14:17> Medications Administered Discontinued Medications Generic Name Dose Route Start Last Admin Trade Name Freq PRN Reason Stop Dose Admin Diphtheria/Tetanus/Acell Pertussis 0.5 ml 05/25/22 14:15 05/25/22 15:21 Diphth,Pertus(Acell),Tet Adult 0.5 Ml Syringe IM 05/25/22 14:16 0.5 ml .ONCE ONE Administration Lidocaine HCl 2 ml 05/25/22 16:01 05/25/22 16:10 Lidocaine Hcl 1 % 20 Ml Vial INFILTRATI 05/25/22 16:02 2 ml ONCE ONE Administration <AMY Burr - Last Filed: 05/25/22 14:17> Medications Administered Discontinued Medications Generic Name Dose Route Start Last Admin Trade Name Freq PRN Reason Stop Dose Admin Diphtheria/Tetanus/Acell Pertussis 0.5 ml 05/25/22 14:15 05/25/22 15:21 Diphth,Pertus(Acell),Tet Adult 0.5 Ml Syringe IM 05/25/22 14:16 0.5 ml .ONCE ONE Administration Lidocaine HCl 2 ml 05/25/22 16:01 05/25/22 16:10 Lidocaine Hcl 1 % 20 Ml Vial INFILTRATI 05/25/22 16:02 2 ml ONCE ONE Administration <Arelis Soler NP - Last Filed: 05/25/22 17:04> Medical Decision Making Medical Decision Making MDM Narrative: 42-year-old female with no significant past medical history presents to the emergency department today after cutting her left hand in the webspace between her thumb and forefinger with a knife opening a can. Tetanus booster given. Wound was cleansed, anesthetized, and sutured. Patient tolerated without incident. Educated to return to the emergency department have the stitches removed in 7-10 days. Please return to the emergency department if you develop fever, chills, redness or drainage at the suture site, or any other concerning symptoms. Recommended follow-up with a primary care provider <Arelis Soler NP - Last Filed: 05/25/22 17:04> Procedures Laceration Laceration 1: Site: hand and other (web space between thumb and forefinger) <Arelis Soler NP - Last Filed: 05/25/22 17:04> Side (If applicable): left <Arelis Soler NP - Last Filed: 05/25/22 17:04> Size (cm): 1 <Arelis Soler NP - Last Filed: 05/25/22 17:04> Description: linear <Arelis Soler NP - Last Filed: 05/25/22 17:04> Depth: simple, single layer <Arelis Soler NP - Last Filed: 05/25/22 17:04> Local Anesthetic: lidocaine 1% <Arelis Soler NP - Last Filed: 05/25/22 17:04> Amount of anesthesia used (mL): 2 <Arelis Soler NP - Last Filed: 05/25/22 17:04> Pre-repair: wound explored and irrigated extensively <Arelis Soler NP - Last Filed: 05/25/22 17:04> Skin layer closed with: nylon <Arelis Soler NP - Last Filed: 05/25/22 17:04> Size (cm): 4-0 <Arelis Soler NP - Last Filed: 05/25/22 17:04> Number of sutures: 3 <Arelis Soler NP - Last Filed: 05/25/22 17:04> Technique: simple, interrupted <Arelis Soler NP - Last Filed: 05/25/22 17:04> Discharge Plan Discharge Clinical Impression: Laceration <AMY Burr - Last Filed: 05/25/22 14:17> Patient Disposition: Home, Self-Care <AMY Burr - Last Filed: 05/25/22 14:17> Instructions: Care For Your Stitches (ED) <AMY Burr - Last Filed: 05/25/22 14:17> Additional Instructions: You have 3 stitches closing your wound. Please have the stitches removed in 7-10 days either at your primary care office, urgency Department, or urgent care. Please return to the emergency department if you develop fever, chills, redness or drainage at the suture site, or any other concerning symptoms. Recommended follow-up with a primary care provider <AMY Burr - Last Filed: 05/25/22 14:17> Prescriptions: No Action No Known Home Meds <AMY Burr - Last Filed: 05/25/22 14:17> Referrals: [facility] Family Medicine [Provider Group] [facility] Primary Care[facility] [Provider Group] [facility] Primary [facility] [Provider Group] <AMY Burr - Last Filed: 05/25/22 14:17> Stand Alone Forms: Work/School Release <AMY Burr - Last Filed: 05/25/22 14:17> Print Language: Syriac <AMY Burr Last Filed: 05/25/22 14:17>
[2022-05-25] MEDS: Diphth,Pertus(ACell),Tet Adult 0.5 ML SYRINGE IM (15:21)
[2022-05-25] MEDS: Lidocaine HCl 1 % 20 ML VIAL INFILTRATI (16:10)
== END 2022-05-25 17:05 | disposition home or self-care (01) ==
PROVIDERS: Emergency Provider Emergency Medicine
DX: S61.412A Laceration without foreign body of left hand, initial encounter (principal); W26.0XXA Contact with knife, initial encounter; Y93.G1 Activity, food preparation and clean up; Y92.010 Kitchen of single-family (private) house as the place of occurrence of the external cause; Y99.9 Unspecified external cause status
CPT/HCPCS: 12001; 73130; 90471; 90715; 99282; 99284

== ENCOUNTER 2022-08-02 19:24 | Emergency (ER) | payer OTHER, SELFPAY ==
[2022-08-02 20:25] VITALS: BP 121/48; PULSE 62; RESP 16; TEMP 36.7; O2SAT 98; BMI 29.0
--- NOTE | 2022-08-02 20:29 | ED.SKABFB ---
HPI - Skin/Abscess/Foreign Bdy General Chief complaint: Skin/Abscess/Foreign Body Stated complaint: Cyst Time Seen by Provider: 08/03/22 01:30 Related Data Previous Rx's Medication Instructions Recorded mupirocin 2 % topical ointment 1 appl topical BID #15 grams 08/03/22 Allergies Allergy/AdvReac Type Severity Reaction Status Date / Time NSAIDS (Non-Steroidal Allergy Severe ANGIOEDEMA Verified 09/26/21 11:24 Anti-Inflamma [NSAIDS] aspirin [ASPIRIN] Allergy Intermediate SWELLING, Verified 09/26/21 11:24 anaphylaxis latex [LATEX] Allergy Intermediate RASH Verified 09/26/21 11:24 metronidazole Allergy rash Verified 09/26/21 11:24 PMFSH Past Medical History Medical History Ruptured cyst of ovary Stress incontinence, female Surgical History History of loop electrical excision procedure (LEEP) Hx of dilation and curettage Hx of tubal ligation Family History Family History Paternal Grandmother Colon cancer Social History Social History Alcohol intake: never Advance Directives: No Sexual orientation: Straight/Heterosexual Physical Exam Vital Signs: Vital Signs: Last Vital Signs Temp 98.0 F 08/02/22 20:25 Pulse 62 08/02/22 20:25 Resp 16 08/02/22 20:25 BP 121/48 L 08/02/22 20:25 Pulse Ox 98 08/02/22 20:25 O2 Del Method 08/02/22 20:25 BMI result Body Mass Index 29.0 Course Course Course Narrative: RME-20:30PM - 42yoF presenting to the ER with complaints of left groin pain due to an abscess. She was started on antibiotics although the antibiotics give her reaction and the groin abscess is worsening pain. She was scheduled for surgery although the surgery is not until the . She denies any other symptoms complaints or concerns at this time Plan: Patient to be evaluated [facility]. Discharge Plan Discharge Clinical Impression: Folliculitis Patient Disposition: Home, Self-Care Instructions: Folliculitis (ED) Additional Instructions: Local care as advised Apply Bactroban ointment twice daily till heals completely Prescriptions: New mupirocin 2 % ointment 1 appl topical BID Qty: 15 0RF Interventions: ED Discharge Assessment Last Done: 08/03/22 01:55 Discharge Date/Time: 08/03/22 01:55
--- NOTE | 2022-08-03 01:46 | ED_ITS ---
HPI - Skin/Abscess/Foreign Bdy General Chief complaint: Skin/Abscess/Foreign Body Stated complaint: Cyst Time Seen by Provider: 08/03/22 01:30 Source: patient Mode of arrival: ambulatory Limitations: no limitations History of Present Illness HPI narrative: Patient history of recurrent folliculitis a small pimple in left groin area for last 1 month took doxycycline for 1 week but swelling still there with slight t enderness no pus discharge no fever. Patient is concerned about the swelling which is not going away Related Data Previous Rx's Medication Instructions Recorded mupirocin 2 % topical ointment 1 appl topical BID #15 grams 08/03/22 Allergies Allergy/AdvReac Type Severity Reaction Status Date / Time NSAIDS (Non-Steroidal Allergy Severe ANGIOEDEMA Verified 09/26/21 11:24 Anti-Inflamma [NSAIDS] aspirin [ASPIRIN] Allergy Intermediate SWELLING, Verified 09/26/21 11:24 anaphylaxis latex [LATEX] Allergy Intermediate RASH Verified 09/26/21 11:24 metronidazole Allergy rash Verified 09/26/21 11:24 Review of Systems Review of Systems: Yes all other systems are reviewed and are negative [facility] Past Medical History Medical History Ruptured cyst of ovary Stress incontinence, female Surgical History History of loop electrical excision procedure (LEEP) Hx of dilation and curettage Hx of tubal ligation Family History Family History Paternal Grandmother Colon cancer Social History Social History Alcohol intake: never Advance Directives: No Sexual orientation: Straight/Heterosexual Physical Exam Vital Signs: Vital Signs: Last Vital Signs Temp 98.0 F 08/02/22 20:25 Pulse 62 08/02/22 20:25 Resp 16 08/02/22 20:25 BP 121/48 L 08/02/22 20:25 Pulse Ox 98 08/02/22 20:25 O2 Del Method 08/02/22 20:25 BMI result Body Mass Index 29.0 Skin: Full body images: 1. Small 0.5 cm by 0.5 cm folliculitis no surrounding erythema Medical Decision Making Medical Decision Making MDM Narrative: Patient has small folliculitis which been chronic with partial use of antibiotic I&D was done no pus discharge. Procedures Abscess I/D Site: lower extremity (Left groin) Side (if applicable): left Local Anesthetic: lidocaine 1% Amount of anesthesia used (mL): 0.5 Technique: incised with blade Sent for culture/gram staining?: No Packing used?: none Discharge Plan Discharge Clinical Impression: Folliculitis Patient Disposition: Home, Self-Care Instructions: Folliculitis (ED) Additional Instructions: Local care as advised Apply Bactroban ointment twice daily till heals completely Prescriptions: New mupirocin 2 % ointment 1 appl topical BID Qty: 15 0RF
== END 2022-08-03 01:55 | disposition home or self-care (01) ==
PROVIDERS: Emergency Provider Internal Medicine
DX: L73.9 Follicular disorder, unspecified (principal)
CPT/HCPCS: 10060; 99284

== ENCOUNTER 2022-09-17 09:32 | Outpatient (REF) | payer OTHER, SELFPAY ==
[2022-09-17 15:59] LABS: CT PCR NOT DETECTED (Not Detect.); NG PCR NOT DETECTED (Not Detect.)
== END 2022-09-17 09:33 | disposition home or self-care (01) ==
LOC: HO.LNP 09:32
PROVIDERS: Visit Provider Advanced Practice Midwife
DX: Z20.2 Contact with and (suspected) exposure to infections with a predominantly sexual mode of transmission (principal)
CPT/HCPCS: 0353U

== ENCOUNTER 2022-09-27 09:56 | Outpatient (REF) | payer OTHER, SELFPAY ==
[2022-09-27 10:24] LABS: MANUAL DIFF FLAG NO
[2022-09-27 10:53] LABS: Basophils Percent Auto 0.6 % (0-2); Eosinophils Absolute Auto 0.1 X10*3/uL (0.0-0.4); Eosinophils Percent Auto 2.9 % (0-4); Hematocrit 39.2 % (37.0-47.0); Hemoglobin 13.5 g/dl (12.0-16.0); Imm Gran Abs Auto 0.01 X10*3/uL (0.00-0.03); Imm Gran Pct Auto 0.2 % (0.0-0.4); Lymphocytes Absolute Auto 1.8 X10*3/uL (1.2-4.9); Lymphocytes Percent Auto 37.3 % (20-40); Mean Corpuscular HGB Conc 34.4 g/dl (31.0-35.0); Mean Corpuscular Volume 90.1 fL (80.0-98.0); Mean Platelet Volume 9.7 fL (9.4-12.3); Monocytes Absolute Auto 0.5 X10*3/uL (0.1-1.2); Monocytes Percent Auto 9.3 % (2-11); Neutrophils Absolute Auto 2.4 x10*3/uL (2.0-8.3); Neutrophils Percent Auto 49.7 % (45-73); Platelet Count 280 X10*3/uL (160-400); Red Blood Count 4.35 X10*6/uL (4.20-5.50); Red Cell Distribution Width 12.4 % (11.0-16.0); White Blood Count 4.8 X10*3/uL (4.8-10.8)
[2022-09-27 11:34] LABS: Alanine Aminotransferase 24 U/L (0-31); Albumin Level 4.3 g/dL (3.5-5.0); Alkaline Phosphatase 48 U/L (39-117); Anion Gap 13 (12-20); Aspartate Amino Transferase 18 U/L (5-31); Bilirubin Total 0.8 mg/dL (0.0-1.0); Blood Urea Nitrogen 14 mg/dL (9-16); C Reactive Protein 0.14 mg/dL (< or = 0.50); Calcium 8.8 mg/dL (8.4-10.2); Carbon Dioxide 22 mmol/L (22-29); Chloride 107 mmol/L (96-108); Estimated Glomerular Filt Rate > 60; Glucose Random 113 mg/dL (60-115); Potassium 4.2 mmol/L (3.3-5.1); Sodium 138 mmol/L (135-145); Total Protein 6.7 g/dL (6.5-8.0)
== END 2022-09-27 09:57 | disposition home or self-care (01) ==
LOC: HO.XRAY 09:56
PROVIDERS: PCP Internal Medicine; Visit Provider Internal Medicine
DX: R05.9 Cough, unspecified (principal); R04.2 Hemoptysis
CPT/HCPCS: 36415; 80053; 85025; 86140

== ENCOUNTER 2023-02-04 13:40 | Outpatient (REF) | payer OTHER, SELFPAY ==
--- NOTE | ~2023-02-04 | MM_ITS ---
EXAMINATION: MM SCREENING DIGITAL BREAST TOMOSYNTHESIS, BILATERAL CLINICAL INFORMATION: Screening. Asymptomatic. COMPARISON: Mammography: This study is compared with prior exams dating back to 2 2. TECHNIQUE: Digital breast tomosynthesis is performed in both the craniocaudal and mediolateral oblique views along with computer-aided detection (CAD). Synthesized 2D images are generated from the tomosynthesis. FINDINGS: There are scattered areas of fibroglandular density (ACR BI-RADS breast composition Category b). The patient has bilateral nipple rings. There are no significant masses, abnormal calcifications, or other abnormalities. MM/MM tomosynthesis screening BI IMPRESSION: No mammographic evidence of malignancy. ASSESSMENT: BI-RADS BI-RADS 1 - Negative RECOMMENDATION: Routine annual mammography screening. 1 year F/U This examination should not preclude the clinical evaluation of a suspicious palpable abnormality. This patient's information was entered into a reminder system with a target due date for their next mammogram.
== END 2023-02-04 13:41 | disposition home or self-care (01) ==
LOC: HO.MAMMO 13:40
PROVIDERS: PCP Internal Medicine; Visit Provider Internal Medicine
DX: Z12.31 Encounter for screening mammogram for malignant neoplasm of breast (principal)
CPT/HCPCS: 77063; 77067

== ENCOUNTER → 2023-02-04 14:00 | Outpatient (BNV) | payer OTHER, SELFPAY | PROVIDERS: PCP Internal Medicine; Visit Provider Radiology Diagnostic Radiology | DX: Z12.31 Encounter for screening mammogram for malignant neoplasm of breast (principal) | CPT/HCPCS: 77063; 77067 ==

== ENCOUNTER 2023-02-13 11:44 | Outpatient (AMB) | payer OTHER, SELFPAY ==
--- NOTE | 2023-02-13 11:47 | A.OFFVIS_ITS ---
Intake Intake Visit Reasons: follow up (last seen 2020) Intake Note: Patient is present for Follow Up Incontince stress Urology Med: None Antibiotic Allergy: None Blood Thinner: None Pharmacy: [facility] Patient has appt for Pelvic Floor therapy next week Allergies NSAIDS (Non-Steroidal Anti-Inflamma [NSAIDS] Allergy (Severe, Verified 09/17/22 09:39) ANGIOEDEMA aspirin [ASPIRIN] Allergy (Intermediate, Verified 09/17/22 09:39) SWELLING, anaphylaxis latex [LATEX] Allergy (Intermediate, Verified 09/17/22 09:39) RASH metronidazole Allergy (Verified 09/17/22 09:39) rash HPI HPI Comments History of Present Illness Details Evert is a pleasant female. She is a patient Dr. Diana. She is here following urologic issues - stress urinary incontinence Bengali translation provided in office by qualified medical insurance claims specialist Has upcoming pelvic floor physical therapy appointments Recommend follow-up with Dr. Pandya in 6 months for review if sling surgery required Stress urinary incontinence Ongoing for past 6 months Gynecologic history 2 full-term pregnancies, both required vacuum extraction for prolonged labor Uses 2-3 pads per day Leakage with cough, laugh, stress Discussed pelvic floor physical therapy Also has some degree of pelvic floor sensitivity Recommend 6 sessions with follow-up Understands may need sling surgery PFSH Medical History Ruptured cyst of ovary Stress incontinence, female Surgical History History of loop electrical excision procedure (LEEP) Hx of dilation and curettage Hx of tubal ligation Family History Paternal Grandmother Colon cancer Social History Alcohol intake: never Patient Tobacco Use Status: Never used Tobacco Sexual orientation: Straight/Heterosexual Gender identity: Female Female Reproductive History Menstrual Age of Menarche: 13 Review of Systems Const Denies chills and Denies fever(s) Card Reports no additional complaints and Denies syncope Resp Denies cough GI Denies abdominal pain and Denies heartburn Reports as per HPI and Denies change in libido Neuro Denies syncope Psych Denies change in libido Endo Denies change in libido Physical Exam Const General: cooperative, healthy appearing, comfortable and no acute distress Orientation/consciousness: patient oriented x3 HEENT Face and sinus: Yes normal facial exam Mouth: moist mucous membranes Neck Neck: Yes normal visual inspection, Yes full ROM and Yes trachea midline Chest Chest palpation & inspection: normal inspection of the chest Resp Effort & Inspection: normal respiratory effort, able to speak in complete sentences and no respiratory distress GI Inspection: Yes normal to inspection Back/Spine/Pelvis Cervical Spine: normal cervical lordosis Thoracic/Lumbar Spine: thoracic and lumbar spine normal to inspection Skin General skin exam: no rashes or lesions noted Neuro General: patient oriented x3, gait normal, tone normal and moves all extremities Extrem General: Yes normal to inspection and Yes capillary refill normal Assessment & Plan Assessment & Plan (1) Stress incontinence, female: Code(s): N39.3 - Stress incontinence (female) (male) Plan Complete PT Follow-up evaluation for sling procedure Patient Instructions: Imaging studies, laboratory and physical exam results were discussed and reviewed in detail. No major barriers to patient understanding were identified. An opportunity to ask questions regarding the treatment plan was provided. All questions were answered. The patient expressed understanding and agreement with the above treatment plan. The patient is aware they should contact our office by phone for worsening of their current condition or the appearance of new urologic symptoms. Compliance is encouraged with any medications and followup testing that is ordered. It is a privilege to participate in the urologic care of your patient. If you have any questions or concerns regarding treatment for the above conditions, or other urologic issues, please do not hesitate to contact me. The office telephone contact is [phone]. This note is constructed using voice recognition software. While every effort has been made to ensure accuracy truck technician errors may have been included. Yours sincerely, Dr Brad Galloway MD, [facility] - Urology Providers of Expert, Compassionate Care for the Genitourinary System Coding Level of Care Code Est Pt Level 3 (31881) Diagnoses Stress incontinence, female N39.3
== END 2023-02-13 11:57 | disposition home or self-care (01) ==
PROVIDERS: PCP Internal Medicine; Visit Provider Urology
DX: N39.3 Stress incontinence (female) (male) (principal)
CPT/HCPCS: 99213

== ENCOUNTER → 2023-02-13 11:44 | Outpatient (BNVA) | payer OTHER, SELFPAY | PROVIDERS: PCP Internal Medicine; Visit Provider Urology | DX: N39.3 Stress incontinence (female) (male) (principal) | CPT/HCPCS: 99212 ==

== ENCOUNTER 2023-04-11 15:00 | Outpatient (RCR) | payer OTHER, SELFPAY | END 2023-05-12 15:50 | disposition home or self-care (01) | LOC: HO.PT 15:00 | PROVIDERS: PCP Internal Medicine; Visit Provider Advanced Practice Midwife | DX: N39.3 Stress incontinence (female) (male) (principal) | CPT/HCPCS: 97112; 97140; 97162 ==

== ENCOUNTER 2023-04-22 14:28 | Outpatient (REF) | payer OTHER, SELFPAY ==
[2023-04-22 15:13] LABS: Influenza A PCR NEGATIVE (Negative); Influenza B PCR NEGATIVE (Negative); Resp Syncy Virus RNA Qual PCR NEGATIVE (Negative); SARS COV2 PCR INHOUSE NEGATIVE (Negative)
== END 2023-04-22 14:29 | disposition home or self-care (01) ==
LOC: HO.LNP 14:28
PROVIDERS: Visit Provider Internal Medicine
DX: R11.0 Nausea (principal); M79.10 Myalgia, unspecified site; R51.9 Headache, unspecified; Z11.52 Encounter for screening for COVID-19
CPT/HCPCS: 0241U

== ENCOUNTER 2023-09-04 12:23 | Outpatient (REF) | payer OTHER, SELFPAY ==
--- NOTE | ~2023-09-04 | XR_ITS ---
EXAMINATION: XR CERVICAL SPINE CLINICAL INFORMATION: Neck pain. COMPARISON: None available. TECHNIQUE: 7 views of the cervical spine. FINDINGS: Slight reversal of the normal cervical lordosis. Visualization of C7 is limited due to overlying soft tissues. Moderate cervical spondylosis with moderate loss of disc space height at C4-C5. XR/XR cervical spine 5V IMPRESSION: Moderate cervical spondylosis with moderate loss of disc space height at C4-C5.
== END 2023-09-04 12:24 | disposition home or self-care (01) ==
LOC: HO.XRAY 12:23
PROVIDERS: PCP Internal Medicine; Visit Provider Internal Medicine
DX: M54.2 Cervicalgia (principal)
CPT/HCPCS: 72050

== ENCOUNTER 2023-09-19 15:46 | Outpatient (AMB) | payer OTHER, SELFPAY ==
--- NOTE | 2023-09-19 15:46 | A.OFFVIS_ITS ---
Intake Visit Reasons: 6m follow up Intake Note: Former Patient of Dr Galloway is present for Follow Up Incontinence Stress Urology Med: None Antibiotic Allergy: None Blood Thinner: None [facility], 0 mL Vp Product Required: No Accompanied by: Significant Other Allergies NSAIDS (Non-Steroidal Anti-Inflamma [NSAIDS] Allergy (Severe, Verified 09/19/23 16:04) ANGIOEDEMA aspirin [ASPIRIN] Allergy (Intermediate, Verified 09/19/23 16:04) SWELLING, anaphylaxis latex [LATEX] Allergy (Intermediate, Verified 09/19/23 16:04) RASH metronidazole Allergy (Verified 09/19/23 16:04) rash HPI Comments Details: Evert is a 43 year old female who was last seen by Dr. Galloway for complaints of stress urinary incontinence. She also complains of pain with intercourse. Gynecologic history 2 full-term pregnancies, both required vacuum extraction for prolonged labor. Uses 2-3 pads per day, Leakage with cough, laugh, stress. Dr. Galloway discussed pelvic floor physical therapy. She attended 3 PT visits, I reviewed PT report, which noted some improvement in symptoms. I have discussed further evaluation with urodynamics. [facility] Medical History Stress incontinence, female Ruptured cyst of ovary Surgical History Hx of dilation and curettage Hx of tubal ligation History of loop electrical excision procedure (LEEP) Family History Paternal Grandmother Colon cancer Social History Alcohol intake: never Patient Tobacco Use Status: Never used Tobacco Sexual orientation: Straight/Heterosexual Gender identity: Female Female Reproductive History Menstrual Age of Menarche: 13 Review of Systems Const All systems reviewed & are unremarkable except as noted in HPI and below Reports no additional complaints Eyes Reports no additional complaints ENT Reports no additional complaints Card Reports no additional complaints Resp Reports no additional complaints GI Reports no additional complaints Reports as per HPI Musc Reports no additional complaints Skin/Breast Reports system reviewed and no additional complaints, except as documented Neuro Reports no additional complaints Psych Reports no additional complaints Endo Reports no additional complaints Nitin/Lymph Reports no additional complaints Aller/Immun Reports no additional complaints Results Reviewed Results Reviewed: Laboratory Last Values Urine pH (Auto) 6.5 09/19/23 15:53 Specific Winton (Auto) 1.015 09/19/23 15:53 Urine Protein (Auto) 0 mg/dL 09/19/23 15:53 Glucose (UA)(Auto) 0 mg/dL 09/19/23 15:53 Urine Ketones (Auto) Positive 09/19/23 15:53 Urine Blood (Auto) 0 Garfield/uL 09/19/23 15:53 Urine Nitrite (Auto) Negative 09/19/23 15:53 Urine Bilirubin (Auto) 0 mg/dL 09/19/23 15:53 Urine Urobilinogen (Auto) 0.2 mg/dL 09/19/23 15:53 Leukocyte Esterase (Auto) 0 Lorin/uL 09/19/23 15:53 Assessment & Plan Assessment & Plan (1) Stress incontinence, female: Code(s): N39.3 - Stress incontinence (female) (male) Category: Medical (2) Dyspareunia in female: Code(s): N94.10 - Unspecified dyspareunia Category: Medical (3) Pelvic pain: Code(s): R10.2 - Pelvic and perineal pain Category: Medical Plan Schedule urodynamics Orders: Orders AMB Post Void Residual by ultrasound 09/19/23 N39.8 - Other specified disorders of urinary system AMB Urinalysis Automated 09/19/23 Z13.9 - Encounter for screening, unspecified Patient Instructions: The patient had an opportunity to ask questions regarding treatment plan. The p atient expressed understanding and agreement with the above treatment plan. The patient is aware they should contact our office by phone for worsening of their current condition or the appearance of new symptoms. Compliance is encouraged with any medications and followup testing that is ordered. It is a privilege to be allowed the opportunity to participate in the urologic care of your patient. If you have any questions or concerns regarding treatment for the above conditions please do not hesitate to contact me. The office telephone contact is [phone]. This note is constructed in part using voice recognition software. While every effort has been made to ensure accuracy pulp machine operator errors may have been included. Yours sincerely, Jeffrey Braswell MD Coding Level of Care Code Est Pt Level 4 (05811) Diagnoses Stress incontinence, female N39.3 Dyspareunia in female N94.10 Pelvic pain R10.2
== END 2023-09-19 16:10 | disposition home or self-care (01) ==
PROVIDERS: PCP Internal Medicine; Visit Provider Urology
DX: N39.3 Stress incontinence (female) (male) (principal); N94.10 Unspecified dyspareunia; R10.2 Pelvic and perineal pain
CPT/HCPCS: 99214

== ENCOUNTER → 2023-09-19 15:46 | Outpatient (BNVA) | payer OTHER, SELFPAY | PROVIDERS: PCP Internal Medicine; Visit Provider Urology | DX: N39.3 Stress incontinence (female) (male) (principal); N94.10 Unspecified dyspareunia; R10.2 Pelvic and perineal pain | CPT/HCPCS: 81003; 99212 ==

== ENCOUNTER 2023-09-23 09:06 | Outpatient (REF) | payer OTHER, SELFPAY ==
[2023-09-23 18:04] LABS: CT PCR NOT DETECTED (Not Detect.); NG PCR NOT DETECTED (Not Detect.)
[2023-09-24 12:40] LABS: BV Int Neg Control Negative (Negative); BV Int Pos Control Positive (Positive)
[2023-09-26 21:08] LABS: HPV mRNA E6/E7 rflx Not Detected (Not Detected)
== END 2023-09-23 09:07 | disposition home or self-care (01) ==
LOC: HO.LNP 09:06
PROVIDERS: Visit Provider Advanced Practice Midwife
DX: Z01.419 Encounter for gynecological examination (general) (routine) without abnormal findings (principal); R10.2 Pelvic and perineal pain; N94.10 Unspecified dyspareunia
CPT/HCPCS: 0353U; 87480; 87510; 87624; 87660; 88142; 99396

== ENCOUNTER 2023-09-23 09:06 | Outpatient (AMB) | payer OTHER, SELFPAY ==
[2023-09-23 09:10] VITALS: BP 122/60; BMI 31.9
--- NOTE | 2023-09-23 09:10 | MHC.OFFVIS ---
Intake Vital Signs 09/23/23 09:10 Height 5 ft 3 in Weight 180 lb BMI 31.9 BP 122/60 Blood Pressure Location Lt brachial Intake Visit Reasons: Annual, Dyspareunia Efficiency Miner Required: No Allergies NSAIDS (Non-Steroidal Anti-Inflamma [NSAIDS] Allergy (Severe, Verified 09/19/23 16:04) ANGIOEDEMA aspirin [ASPIRIN] Allergy (Intermediate, Verified 09/19/23 16:04) SWELLING, anaphylaxis latex [LATEX] Allergy (Intermediate, Verified 09/19/23 16:04) RASH metronidazole Allergy (Verified 09/19/23 16:04) rash Medication List - Last Reconciled 09/23/23 by Elba Armas, DIRECTOR INPATIENT HEADACHE PROGRAM Is last menstrual period known: Yes Last menstrual period: 09/08/23 Post menopausal: No Patient : No Do you need a note to return to daycare/school/sports/work: No HPI HPI Comments History of Present Illness Details She is a premenopausal woman presenting for annual examination. Doing well with concerns: cramping discomforts, and after intimacy, she has a Urology evaluation soon. She tries to eat healthy and stays active with exercise. Regular monthly menses. Currently is sexually active. She denies vaginal itching and irritation. STI screening offered; she accepts. Denies family history of breast or ovarian. FH colon cancer. Last pap smear 2021, negative. History of LEEP. Mammogram: 01/2022. [facility] Medical History Stress incontinence, female Ruptured cyst of ovary Surgical History Hx of dilation and curettage Hx of tubal ligation History of loop electrical excision procedure (LEEP) Family History Paternal Grandmother Colon cancer Social History Alcohol intake: never Patient Tobacco Use Status: Never used Tobacco Sexual orientation: Straight/Heterosexual Gender identity: Female Female Reproductive History Menstrual Age of Menarche: 13 Date of last menstrual period: 09/08/23 Review of Systems Const All systems reviewed & are unremarkable except as noted in HPI and below Reports as per HPI Eyes Reports no additional complaints ENT Reports no additional complaints Card Reports no additional complaints Resp Reports no additional complaints GI Reports as per [facility] and Reports no additional complaints Reports as per HPI Musc Reports no additional complaints Skin/Breast Reports as per HPI Neuro Reports no additional complaints Psych Reports no additional complaints Endo Reports no additional complaints Nitin/Lymph Reports no additional complaints Aller/Immun Reports no additional complaints Physical Exam Vital Signs: Last Vital Signs BP 122/60 09/23/23 09:10 BMI result Body Mass Index 31.9 Const General: cooperative, healthy appearing, no acute distress, well developed and alert Orientation/consciousness: patient oriented x3 HEENT Head: Yes normal to inspection Eyes General: appearance normal, both eyes and all related structures Neck Neck: Yes normal visual inspection Thyroid: Thyroid normal Chest Chest palpation & inspection: normal inspection of the chest and other (no puckering, dimpling, peau de orange, retraction, discharge, masses) Breast/axilla inspection: normal inspection of the breasts Breast/axilla palpation: normal palpation of the breasts Resp Effort & Inspection: normal respiratory effort GI Inspection: Yes normal to inspection Palpation (GI): Soft to palpation Rectal Exam - Female: deferred General: Yes bladder normal to palpation External Female Exam: normal external appearance and normal appearance of the urethra Speculum Exam - Vagina: normal appearance of the vagina, normal palpation and normal vaginal discharge Speculum Exam - Cervix: normal appearance of the cervix, normal palpation and Other cervical findings present (Bled with Pap) Bimanual exam- vagina & uterus: normal bimanual exam, normal palpation, uterine size normal, bladder normal to palpation, normal palpation and non-tender Bimanual Exam- Adnexa, other: no masses Skin General skin exam: no rashes or lesions noted Rashes: no rashes Neuro General: patient oriented x3 Cognition (Neuro): normal cognition Extrem General: Yes normal to inspection Psych Attitude: cooperative Thought process: Normal thought process present Assessment & Plan Assessment & Plan (1) Encounter for well woman exam with routine gynecological exam: Code(s): Z01.419 - Encounter for gynecological examination (general) (routine) without abnormal findings Plan Discussed: Current recommendations for pap smears per ASCCP guidelines. Breast awareness and periodic breast exams. Maintain a healthy lifestyle including a well balanced diet and routine exercise. Use condoms for STI and prevention. Mammogram yearly. Order placed. Ultrasound planned, follow-up ultrasound in person. Patient verbalizes understanding and agrees to the plan of care. She was given opportunity to ask questions and all questions were answered to the best of my ability. RTO in one year for annual catering coordinator examination. This note is constructed using voice recognition software. While every effort has been made to ensure accuracy, demolition specialist errors may have been included. Orders: Orders Bacterial Vaginosis Panel Today N94.10 - Unspecified dyspareunia, R10.2 - Pelvic and perineal pain MM tomosynthesis screening BI Today Z12.31 - Encounter for screening mammogram for malignant neoplasm of breast US pelvic and transvaginal Today N94.10 - Unspecified dyspareunia, R10.2 - Pelvic and perineal pain CT NG by PCR Today N94.10 - Unspecified dyspareunia, R10.2 - Pelvic and perineal pain Pap Smear Today N94.10 - Unspecified dyspareunia, R10.2 - Pelvic and perineal pain Coding Level of Care Code Est Pt Prev Care 40-64y(12534) Diagnoses Encounter for well woman exam with routine gynecological exam Z01.419
== END 2023-09-23 09:42 | disposition home or self-care (01) ==
PROVIDERS: Visit Provider Advanced Practice Midwife
DX: Z01.419 Encounter for gynecological examination (general) (routine) without abnormal findings (principal)
CPT/HCPCS: 99396

== ENCOUNTER 2023-10-03 11:07 | Outpatient (REF) | payer OTHER, SELFPAY ==
--- NOTE | ~2023-10-03 | US_ITS ---
EXAMINATION: US PELVIS CLINICAL INFORMATION: Dyspareunia. COMPARISON: Pelvic ultrasound dated 09/14/2021. TECHNIQUE: Ultrasound of the pelvis is performed using both transabdominal and transvaginal transducers along with Doppler. Transvaginal imaging is performed due to inadequate visualization transabdominally. FINDINGS: Uterus: The uterus is anteverted and anteflexed. The uterus measures 8.8 x 5.4 x 6.5 cm. The double wall endometrial thickness is 1.0 mm. The uterus is smooth in contour and has normal myometrial echogenicity. No visible fibroid. Adnexa: Both ovaries are visualized. There is normal color flow to the adnexa. There is no ovarian torsion. A 1.6 cm simple left paraovarian cyst is seen. There is a small amount of nonspecific free fluid in the cul-de-sac. Right ovary measures 2.9 x 1.3 x 2.0 cm, volume 3.9 mL. Left ovary measures 3.3 x 1.5 x 2.0 cm, volume 5.0 mL. US/US pelvic and transvaginal IMPRESSION: 1. A 1.6 cm simple left paraovarian cyst is noted. 2. There is a small amount of nonspecific free fluid in the cul-de-sac.
== END 2023-10-03 11:08 | disposition home or self-care (01) ==
LOC: HO.US 11:07
PROVIDERS: PCP Internal Medicine; Visit Provider Advanced Practice Midwife
DX: N94.10 Unspecified dyspareunia (principal); R10.2 Pelvic and perineal pain
CPT/HCPCS: 76830; 76856

== ENCOUNTER 2023-10-22 09:42 | Outpatient (AMB) | payer OTHER, SELFPAY ==
[2023-10-22 09:51] VITALS: BP 110/74; BMI 31.9
--- NOTE | 2023-10-22 09:51 | MHC.OFFVIS ---
Vital Signs 10/22/23 09:51 Height 5 ft 3 in Weight 180 lb BMI 31.9 BP 110/74 Intake Visit Reasons: ultrasound follow up Driller'S Offsider Required: Yes Driller'S Offsider Language: Registered Respiratory Therapist Name: Domo [id number] Information Interpreted: non-clinical & clinical Design Quality Engineer: Design Quality Engineer Present Allergies NSAIDS (Non-Steroidal Anti-Inflamma [NSAIDS] Allergy (Severe, Verified 10/22/23 09:51) ANGIOEDEMA aspirin [ASPIRIN] Allergy (Intermediate, Verified 10/22/23 09:51) SWELLING, anaphylaxis latex [LATEX] Allergy (Intermediate, Verified 10/22/23 09:51) RASH metronidazole Allergy (Verified 10/22/23 09:51) rash Is last menstrual period known: Yes HPI Comments Details: Patient is here today for a follow up pelvic ultrasound, history of pelvic cramping at her last visit. She reports that cramping discomforts on her right not the left. She has frequency of urination and has a urology workup this month. [facility] Medical History Stress incontinence, female Ruptured cyst of ovary Surgical History Hx of dilation and curettage Hx of tubal ligation History of loop electrical excision procedure (LEEP) Family History Paternal Grandmother Colon cancer Social History Alcohol intake: never Patient Tobacco Use Status: Never used Tobacco Sexual orientation: Straight/Heterosexual Gender identity: Female Female Reproductive History Menstrual Age of Menarche: 13 Review of Systems Const All systems reviewed & are unremarkable except as noted in HPI and below Endo Reports no additional complaints Physical Exam Vital Signs: Last Vital Signs BP 110/74 10/22/23 09:51 BMI result Body Mass Index 31.9 Const General: cooperative, healthy appearing and no acute distress Psych Appearance: well kempt Attitude: cooperative Thought process: Normal thought process present Results Reviewed Results Reviewed: [address] [address] Ultrasound Report Signed Patient: Jag Mclean MR#: [id number] : 1980 Acct:[id number] Age/Sex: 43 / F ADM Date: 10/03/23 Loc: HO.US Attending Dr: Nelly Malone CNM Ordering Physician: Nelly Malone CNM Date of Service: 10/03/23 Procedure(s): US pelvic and transvaginal Accession Number(s): [id number] cc: Tra Diana MD; Nelly Malone CNM~ EXAMINATION: US PELVIS CLINICAL INFORMATION: Dyspareunia. COMPARISON: Pelvic ultrasound dated 09/14/2021. TECHNIQUE: Ultrasound of the pelvis is performed using both transabdominal and transvaginal transducers along with Doppler. Transvaginal imaging is performed due to inadequate visualization transabdominally. FINDINGS: Uterus: The uterus is anteverted and anteflexed. The uterus measures 8.8 x 5.4 x 6.5 cm. The double wall endometrial thickness is 1.0 mm. The uterus is smooth in contour and has normal myometrial echogenicity. No visible fibroid. Adnexa: Both ovaries are visualized. There is normal color flow to the adnexa. There is no ovarian torsion. A 1.6 cm simple left paraovarian cyst is seen. There is a small amount of nonspecific free fluid in the cul-de-sac. Right ovary measures 2.9 x 1.3 x 2.0 cm, volume 3.9 mL. Left ovary measures 3.3 x 1.5 x 2.0 cm, volume 5.0 mL. US/US pelvic and transvaginal IMPRESSION: 1. A 1.6 cm simple left paraovarian cyst is noted. 2. There is a small amount of nonspecific free fluid in the cul-de-sac. Dictated By: Ashvin Samayoa MD Signed By: <Electronically signed by Ashvin Samayoa MD in OV> 10/08/23 1105 DD/ 1147 TD/TT: Pigment Mixer: HEIDY Assessment & Plan Assessment & Plan (1) Encounter to discuss test results: Code(s): Z71.2 - Person consulting for explanation of examination or test findings Plan Discussed: Ultrasound finding: A 1.6 cm simple left paraovarian cyst is noted, advised if any discomfort to notify the office for a follow up. Encouraged hydrate well with water and to avoid any bladder triggers. Next appointment for annual was September 2024. All of her questions and concerns were addressed to the best of my ability. She is agreeable to the plan of care. This note is constructed using voice recognition software. While every effort has been made to ensure accuracy, dynamics ax technical architect errors may have been included. Coding Level of Care Code Est Pt Level 3 (87781) Diagnoses Encounter to discuss test results Z71.2
== END 2023-10-22 10:08 | disposition home or self-care (01) ==
PROVIDERS: PCP Internal Medicine; Visit Provider Advanced Practice Midwife
DX: Z71.2 Person consulting for explanation of examination or test findings (principal)
CPT/HCPCS: 99213

== ENCOUNTER → 2023-10-22 09:42 | Outpatient (BNVA) | payer OTHER, SELFPAY | PROVIDERS: PCP Internal Medicine; Visit Provider Advanced Practice Midwife | DX: Z71.2 Person consulting for explanation of examination or test findings (principal) | CPT/HCPCS: 99212 ==

== ENCOUNTER 2023-11-05 12:48 | Outpatient (REF) | payer OTHER, SELFPAY | END 2023-11-05 12:49 | disposition home or self-care (01) | LOC: HO.LAB 12:48 | PROVIDERS: Visit Provider Urology | DX: N39.0 Urinary tract infection, site not specified (principal) | CPT/HCPCS: 87086 ==

== ENCOUNTER 2023-11-14 09:56 | Outpatient (AMB) | payer OTHER, SELFPAY ==
--- NOTE | 2023-11-14 09:58 | A.OFFVIS_ITS ---
Intake Visit Reasons: Urodynamics Intake Note: Patient presents today for a URODYNAMIC Procedure: Meds: None Allergies to Antibiotic: No Known Allergies Blood Thinner: None Hat Block Bench Hand Required: Yes Hat Block Bench Hand Language: Juvenile Detention Officer Name: Elijah Mcdonough Information Interpreted: non-clinical & clinical Accompanied by: Self / Same As Patient Allergies NSAIDS (Non-Steroidal Anti-Inflamma [NSAIDS] Allergy (Severe, Verified 11/14/23 09:59) ANGIOEDEMA aspirin [ASPIRIN] Allergy (Intermediate, Verified 11/14/23 09:59) SWELLING, anaphylaxis latex [LATEX] Allergy (Intermediate, Verified 11/14/23 09:59) RASH metronidazole Allergy (Verified 11/14/23 09:59) rash Medication List - Last Reconciled 11/14/23 by Jeffrey Braswell MD phenazopyridine (Pyridium) 200 mg PO Q8H vibegron (Gemtesa) 75 mg PO DAILY HPI Comments Details: Jag is a 43-year-old female who complains of urinary incontinence. She states that after she urinates she will get up and leak more urine as well as with sneezing or coughing. The patient has gone to pelvic floor physical therapy. She states she completed 3-4 sessions and was discharged due to a mixup in the appointment schedule. She did learn some exercises from the physical therapist which she has been working on. CMG Interpretation: During the filling phase the patient was noted to have sensory urgency and an uninhibited detrusor contraction associated with strong urge. She felt that she reached capacity after 188 mL was instilled. Leakage was noted with coughing and Valsalva. She leaked about 69 mL with coughing, there was noted to be an associated detrusor contraction with that event. She has refilled with another 110 mL in voided 199 mL EMG had normal parameters during the filling and voiding phase. Discussed treatment options to include PO antimuscarincs as well as other therapies to include Bladder botox injection. Will start gemtesa. [facility] Medical History Stress incontinence, female Ruptured cyst of ovary Surgical History Hx of dilation and curettage Hx of tubal ligation History of loop electrical excision procedure (LEEP) Family History Paternal Grandmother Colon cancer Social History Alcohol intake: never Patient Tobacco Use Status: Never used Tobacco Sexual orientation: Straight/Heterosexual Gender identity: Female Female Reproductive History Menstrual Age of Menarche: 13 Review of Systems Const All systems reviewed & are unremarkable except as noted in HPI and below Reports no additional complaints Eyes Reports no additional complaints ENT Reports no additional complaints Card Reports no additional complaints Resp Reports no additional complaints GI Reports no additional complaints Reports as per HPI Musc Reports no additional complaints Skin/Breast Reports system reviewed and no additional complaints, except as documented Neuro Reports no additional complaints Psych Reports no additional complaints Endo Reports no additional complaints Nitin/Lymph Reports no additional complaints Aller/Immun Reports no additional complaints Office Procedures Urodynamic Studies Consent Discussed risk and benefit or proposed procedure with the patient. Information consent for procedure given to the patient. Discussed technical aspects, risks, benefits and alternatives in full. Addressed all of the patient's questions and concerns regarding the procedure. The patient demonstrated knowledge and understanding. They wish to proceed with this procedure. Preparation The patient was prepped in the usual manner. A pulmonary physician was present and in the room. Genitalia was prepped with betadine solution in a sterile manner. Prep: The patient was prepped in the usual manner. A pulmonary physician was present and in the room. Genitalia was prepped with betadine solution in a sterile manner. Complex Uroflow Complex uroflow performed by: Jeffrey Braswell Maximum urinary flow rate (mL/second): 6.7 mL Voiding time (seconds): 12 Voided volume (mL): 40 mL Residual urine (mL): 0 mL Cystometrogram Vaginal/rectal catheter type: Vaginal First sensation at (mL): 30 mL First desire at (mL): 46 mL Strong desire to void occured at (mL): 188 mL Strong desire detrussor pressure (cm H2O): 15 Maximum fill (mL): 200 mL Voided with max detrussor pressure of (cm H2O): 18 Maximum flow rate (mL/second): 20 mL/s 05728-Sgakyemnlmiycc w/ SURGEON'S ASSISTANT 13765-Wfxuvat-Riygpewrowmq First 45451-Gqwk/Urinary Muscle Study 74198-Sbbdo-Vzpkcvdss Pressure Test Procedure code (CPT) selection complete Office Meds nitrofurantoin monohydrate/macrocrystals 100 mg capsule Performing Provider: Jeffrey Braswell MD Performing Location: [facility] [place] [facility] Administered by: Santos Escoto LPN on 11/14/23 10:03 Dose Route Admin Location Dispensed Lot Number Expiration Date NDC Pelota Maker 100 mg PO 1 cap Assessment & Plan Assessment & Plan (1) Detrusor overactivity: Code(s): N32.81 - Overactive bladder Category: Medical (2) Stress incontinence, female: Code(s): N39.3 - Stress incontinence (female) (male) Category: Medical (3) Urinary urgency: Code(s): R39.15 - Urgency of urination Category: Medical Plan Gemtesa 75 mg daily fu in 2 months Orders: Orders Urine Culture 11/05/23 N39.0 - Urinary tract infection, site not specified AMB Urodynamics Studies 11/14/23 N39.3 - Stress incontinence (female) (male), R10.2 - Pelvic and perineal pain Medications: New phenazopyridine (Pyridium) take with food 200 mg PO Q8H 10 tabs 0RF urinary burning vibegron (Gemtesa) 75 mg PO DAILY 30 tabs 1RF Patient Instructions: The patient had an opportunity to ask questions regarding treatment plan. The patient expressed understanding and agreement with the above treatment plan. The patient is aware they should contact our office by phone for worsening of their current condition or the appearance of new symptoms. Compliance is encouraged with any medications and followup testing that is ordered. It is a privilege to be allowed the opportunity to participate in the urologic care of your patient. If you have any questions or concerns regarding treatment for the above conditions please do not hesitate to contact me. The office telephone contact is [phone]. This note is constructed in part using voice recognition software. While every effort has been made to ensure accuracy co founder and president errors may have been included. Yours sincerely, Jeffrey Braswell MD Coding Level of Care Code Est Pt Level 4 (01787) Diagnoses Detrusor overactivity N32.81 Stress incontinence, female N39.3 Urinary urgency R39.15 CPT Codes Urodynamic Studies - CPT: 42639-Otwarbybxcrtzl w/ SURGEON'S ASSISTANT ([id number]) Urodynamic Studies - CPT: 85293-Xmusfnm-Jqtvsafiyite First ([id number]) Urodynamic Studies - CPT: 95094-Ijop/Urinary Muscle Study ([id number]) Urodynamic Studies - CPT: 60121-Ozofp-Khelspdvj Pressure Test ([id number])
== END 2023-11-14 10:50 | disposition home or self-care (01) ==
LOC: HO.HUSH 09:56
PROVIDERS: PCP Internal Medicine; Visit Provider Urology
DX: N32.81 Overactive bladder (principal); N39.3 Stress incontinence (female) (male); R39.15 Urgency of urination
CPT/HCPCS: 51728; 51741; 51784; 51797; 99214

== ENCOUNTER → 2023-11-14 09:56 | Outpatient (BNVA) | payer OTHER, SELFPAY | PROVIDERS: PCP Internal Medicine; Visit Provider Urology | DX: N39.3 Stress incontinence (female) (male) (principal); N32.81 Overactive bladder; R39.15 Urgency of urination; Z79.899 Other long term (current) drug therapy | CPT/HCPCS: 51728; 51741; 51784; 51797; 99212 ==

== ENCOUNTER 2024-01-15 10:04 | Outpatient (AMB) | payer OTHER, SELFPAY ==
--- NOTE | 2024-01-15 10:05 | A.OFFVIS_ITS ---
Intake Visit Reasons: 2m/PVR/MED REVIEW(GEMTESA) Intake Note: Patient presents today for 2m/pvr/med review Meds: Allergies to Antibiotic: No Known Allergies Blood Thinner: None Structural Steel Ironworker Required: No Structural Steel Ironworker Services: Structural Steel Ironworker Offered & Declined Accompanied by: Self / Same As Patient Allergies NSAIDS (Non-Steroidal Anti-Inflamma [NSAIDS] Allergy (Severe, Verified 01/15/24 10:06) ANGIOEDEMA aspirin [ASPIRIN] Allergy (Intermediate, Verified 01/15/24 10:06) SWELLING, anaphylaxis latex [LATEX] Allergy (Intermediate, Verified 01/15/24 10:06) RASH metronidazole Allergy (Verified 01/15/24 10:06) rash Medication List - Last Reconciled 01/15/24 by Jeffrey Braswell MD oxybutynin chloride ER 10 mg PO DAILY HPI Comments Details: 01/15/24--Jag is here in follow-up. She has symptoms of mixed urinary incontinence. Urodynamics performed 11/14/[id number] overactivity, and stress urinary incontinence. Gemtesa was prescribed insurance did not cover the medication. I have recommended cystoscopy bladder Botox injection. Will prescribe oxybutynin 10 mg daily. Review of chart: 11/14/23--Jag is a 43-year-old female who complains of urinary incontinence. She states that after she urinates she will get up and leak more urine as well as with sneezing or coughing. The patient has gone to pelvic floor physical therapy. She states she completed 3-4 sessions and was discharged due to a mixup in the appointment schedule. She did learn some exercises from the physical therapist which she has been working on. CMG Interpretation: During the filling phase the patient was noted to have sensory urgency and an uninhibited detrusor contraction associated with strong urge. She felt that she reached capacity after 188 mL was instilled. Leakage was noted with coughing and Valsalva. She leaked about 69 mL with coughing, there was noted to be an associated detrusor contraction with that event. She has refilled with another 110 mL in voided 199 mL EMG had normal parameters during the filling and voiding phase. Discussed treatment options to include PO antimuscarincs as well as other therapies to include Bladder botox injection. Will start gemtesa. [facility] Medical History Stress incontinence, female Ruptured cyst of ovary Surgical History Hx of dilation and curettage Hx of tubal ligation History of loop electrical excision procedure (LEEP) Family History Paternal Grandmother Colon cancer Social History Alcohol intake: never Patient Tobacco Use Status: Never used Tobacco Sexual orientation: Straight/Heterosexual Gender identity: Female Female Reproductive History Menstrual Age of Menarche: 13 Review of Systems Const All systems reviewed & are unremarkable except as noted in HPI and below Reports no additional complaints Eyes Reports no additional complaints ENT Reports no additional complaints Card Reports no additional complaints Resp Reports no additional complaints GI Reports no additional complaints Reports as per HPI Musc Reports no additional complaints Skin/Breast Reports system reviewed and no additional complaints, except as documented Neuro Reports no additional complaints Psych Reports no additional complaints Endo Reports no additional complaints Nitin/Lymph Reports no additional complaints Aller/Immun Reports no additional complaints Results AMB Urinalysis, Automated UA Leukoctes 125 Lorin/uL Last Edit by KRZYSZTOF Abernathy on 01/15/24 10:18 UA Nitrite Negative Last Edit by KRZYSZTOF Abernathy on 01/15/24 10:18 UA Urobilinogen 0.2 mg/dL Last Edit by KRZYSZTOF Abernathy on 01/15/24 10:1 8 UA Protein 30 mg/dL Last Edit by KRZYSZTOF Abernathy on 01/15/24 10:18 UA pH 6.0 Last Edit by KRZYSZTOF Abernathy on 01/15/24 10:18 UA Blood 200 Garfield/uL Last Edit by KRZYSZTOF Abernathy on 01/15/24 10:18 UA Specific [place] 1.020 Last Edit by KRZYSZTOF Abernathy on 01/15/24 10: 18 UA Ketone Negative Last Edit by KRZYSZTOF Abernathy on 01/15/24 10:18 UA Bilirubin 0 mg/dL Last Edit by KRZYSZTOF Abernathy on 01/15/24 10:18 UA Glucose 0 mg/dL Last Edit by KRZYSZTOF Abernathy on 01/15/24 10:18 Results Reviewed Results Reviewed: Laboratory Last Values Urine pH (Auto) 6.0 01/15/24 10:18 Specific [place] (Auto) 1.020 01/15/24 10:18 Urine Protein (Auto) 30 mg/dL 01/15/24 10:18 Glucose (UA)(Auto) 0 mg/dL 01/15/24 10:18 Urine Ketones (Auto) Negative 01/15/24 10:18 Urine Blood (Auto) 200 Garfield/uL 01/15/24 10:18 Urine Nitrite (Auto) Negative 01/15/24 10:18 Urine Bilirubin (Auto) 0 mg/dL 01/15/24 10:18 Urine Urobilinogen (Auto) 0.2 mg/dL 01/15/24 10:18 Leukocyte Esterase (Auto) 125 Lorin/uL 01/15/24 10:18 Assessment & Plan Assessment & Plan (1) 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 The patient expressed understanding and agreement with the above treatment plan. The patient is aware they should contact our office by phone for worsening of their current condition or the appearance of new symptoms. Compliance is encouraged with any medications and followup testing that is ordered. It is a privilege to be allowed the opportunity to participate in the urologic care of your patient. If you have any questions or concerns regarding treatment for the above conditions please do not hesitate to contact me. The office telephone contact is [phone]. This note is constructed in part using voice recognition software. While every effort has been made to ensure accuracy crown blocker errors may have been included. Yours sincerely, Jeffrey Braswell MD Coding Level of Care Code Est Pt Level 4 (08326) Diagnoses Detrusor overactivity N32.81 Stress incontinence, female N39.3 Urinary urgency R39.15
== END 2024-01-15 10:42 | disposition home or self-care (01) ==
PROVIDERS: PCP Internal Medicine; Visit Provider Urology
DX: N32.81 Overactive bladder (principal); N39.3 Stress incontinence (female) (male); R39.15 Urgency of urination; Z13.9 Encounter for screening, unspecified
CPT/HCPCS: 99214

== ENCOUNTER → 2024-01-15 10:04 | Outpatient (BNVA) | payer OTHER, SELFPAY | PROVIDERS: PCP Internal Medicine; Visit Provider Urology | DX: N32.81 Overactive bladder (principal); N39.3 Stress incontinence (female) (male); R39.15 Urgency of urination | CPT/HCPCS: 81003; 99212 ==

== ENCOUNTER → 2024-02-06 11:15 | Outpatient (BNV) | payer OTHER, SELFPAY | PROVIDERS: PCP Internal Medicine; Visit Provider Internal Medicine | DX: Z12.31 Encounter for screening mammogram for malignant neoplasm of breast (principal) | CPT/HCPCS: 77063; 77067 ==

== ENCOUNTER 2024-02-06 11:16 | Outpatient (REF) | payer OTHER, SELFPAY ==
--- NOTE | ~2024-02-06 | MM_ITS ---
EXAMINATION: MM SCREENING DIGITAL BREAST TOMOSYNTHESIS, BILATERAL CLINICAL INFORMATION: Screening. Asymptomatic. COMPARISON: Mammography: Comparison is made with available prior examinations. TECHNIQUE: Digital breast tomosynthesis is performed in both the craniocaudal and mediolateral oblique views along with computer-aided detection (CAD). Synthesized 2D images are generated from the tomosynthesis. FINDINGS: There are scattered areas of fibroglandular density (ACR BI-RADS breast composition Category b). There are no significant masses, abnormal calcifications, or other abnormalities. MM/MM tomosynthesis screening BI IMPRESSION: No mammographic evidence of malignancy. ASSESSMENT: BI-RADS BI-RADS 1 - Negative RECOMMENDATION: Routine annual mammography screening. 1 year F/U This examination should not preclude the clinical evaluation of a suspicious palpable abnormality. This patient's information was entered into a reminder system with a target due date for their next mammogram. Electronically signed by: Martha Alejandra DO 03/05/2024 09:28 AM EDT
== END 2024-02-06 11:17 | disposition home or self-care (01) ==
LOC: HO.MAMMO 11:16
PROVIDERS: PCP Internal Medicine; Visit Provider Advanced Practice Midwife
DX: Z12.31 Encounter for screening mammogram for malignant neoplasm of breast (principal)
CPT/HCPCS: 77063; 77067

== ENCOUNTER 2024-03-04 13:34 | Outpatient (AMB) | payer OTHER, SELFPAY ==
--- NOTE | 2024-03-04 13:36 | A.OFFVIS_ITS ---
Intake Visit Reasons: Dicuss other options(Botox Denied) Intake Note: Patient presents today to dicuss other options(botox denied) Meds: oxybutynin Allergies to Antibiotic: No Known Allergies Blood Thinner: None Senior Planning Manager Required: No Senior Planning Manager Services: Senior Planning Manager Offered & Declined Accompanied by: Self / Same As Patient Allergies NSAIDS (Non-Steroidal Anti-Inflamma [NSAIDS] Allergy (Severe, Verified 03/04/24 13:37) ANGIOEDEMA aspirin [ASPIRIN] Allergy (Intermediate, Verified 03/04/24 13:37) SWELLING, anaphylaxis latex [LATEX] Allergy (Intermediate, Verified 03/04/24 13:37) RASH metronidazole Allergy (Verified 03/04/24 13:37) rash Medication List - Last Reconciled 03/04/24 by Jeffrey Braswell MD tolterodine ER 4 mg PO BID HPI Comments Details: 03/04/24--Jacobo is here in follow-up for urinary incontinence. Insurance denied bladder Botox. The patient states that she went to the pharmacy but was not given the oxybutynin that I have prescribed. She states that the urine leakage is getting worse, she is leaking with coughing and sometimes is not able to make it to the bathroom before leaking. Tolterodine 4 mg twice a day sent to the pharmacy. Follow-up in 4 weeks. Review of chart: 01/15/24--Jag is here in follow-up. She has symptoms of mixed urinary incontinence. Urodynamics performed 11/14/[id number] overactivity, and stress urinary incontinence. Gemtesa was prescribed insurance did not cover the medication. I have recommended cystoscopy bladder Botox injection. Will prescribe oxybutynin 10 mg daily. 11/14/23--Jag is a 43-year-old female who complains of urinary incontinence. She states that after she urinates she will get up and leak more urine as well as with sneezing or coughing. The patient has gone to pelvic floor physical therapy. She states she completed 3-4 sessions and was discharged due to a mixup in the appointment schedule. She did learn some exercises from the physical therapist which she has been working on. CMG Interpretation: During the filling phase the patient was noted to have sensory urgency and an uninhibited detrusor contraction associated with strong urge. She felt that she reached capacity after 188 mL was instilled. Leakage was noted with coughing and Valsalva. She leaked about 69 mL with coughing, there was noted to be an associated detrusor contraction with that event. She has refilled with another 110 mL in voided 199 mL EMG had normal parameters during the filling and voiding phase. Discussed treatment options to include PO antimuscarincs as well as other therapies to include Bladder botox injection. Will start gemtesa. [facility] Medical History Stress incontinence, female Ruptured cyst of ovary Surgical History Hx of dilation and curettage Hx of tubal ligation History of loop electrical excision procedure (LEEP) Family History Paternal Grandmother Colon cancer Social History Alcohol intake: never Patient Tobacco Use Status: Never used Tobacco Sexual orientation: Straight/Heterosexual Gender identity: Female Female Reproductive History Menstrual Age of Menarche: 13 Review of Systems Const All systems reviewed & are unremarkable except as noted in HPI and below Reports no additional complaints Eyes Reports no additional complaints ENT Reports no additional complaints Card Reports no additional complaints Resp Reports no additional complaints GI Reports no additional complaints Reports as per HPI Musc Reports no additional complaints Skin/Breast Reports system reviewed and no additional complaints, except as documented Neuro Reports no additional complaints Psych Reports no additional complaints Endo Reports no additional complaints Nitin/Lymph Reports no additional complaints Aller/Immun Reports no additional complaints Results AMB Urinalysis, Automated UA Leukoctes 0 Lorin/uL Last Edit by KRZYSZTOF Abernathy on 03/04/24 13:53 UA Nitrite Negative Last Edit by KRZYSZTOF Abernathy on 03/04/24 13:53 UA Urobilinogen 0.2 mg/dL Last Edit by Cely [facility] on 03/04/24 13:5 3 UA Protein 0 mg/dL Last Edit by Cely Stanley [facility] on 03/04/24 13:53 UA pH 6.0 Last Edit by Cely Stanley [facility] on 03/04/24 13:53 UA Blood 0 Garfield/uL Last Edit by Cely Stanley [facility] on 03/04/24 13:53 UA Specific [place] 1.025 Last Edit by Cely Stanley [facility] on 03/04/24 13: 53 UA Ketone Negative Last Edit by Cely Stanley [facility] on 03/04/24 13:53 UA Bilirubin 0 mg/dL Last Edit by Cely Stanley [facility] on 03/04/24 13:53 UA Glucose 0 mg/dL Last Edit by Cely Stanley [facility] on 03/04/24 13:53 Assessment & Plan Assessment & Plan (1) 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 Follow-up in 4 weeks. Orders: Orders AMB Urinalysis Automated Today Z13.9 - Encounter for screening, unspecified Medications: New tolterodine ER 4 mg PO BID 60 caps 5RF Patient Instructions: The patient had an opportunity to ask questions regarding treatment plan. The patient expressed understanding and agreement with the above treatment plan. The patient is aware they should contact our office by phone for worsening of their current condition or the appearance of new symptoms. Compliance is encouraged with any medications and followup testing that is ordered. It is a privilege to be allowed the opportunity to participate in the urologic care of your patient. If you have any questions or concerns regarding treatment for the above conditions please do not hesitate to contact me. The office telephone contact is [phone]. This note is constructed in part using voice recognition software. While every effort has been made to ensure accuracy patient accounts clerk errors may have been included. Yours sincerely, Jeffrey Braswell MD Coding Level of Care Code Est Pt Level 4 (69865) Diagnoses Detrusor overactivity N32.81 Stress incontinence, female N39.3 Urinary urgency R39.15
== END 2024-03-04 14:12 | disposition home or self-care (01) ==
PROVIDERS: PCP Internal Medicine; Visit Provider Urology
DX: N32.81 Overactive bladder (principal); N39.3 Stress incontinence (female) (male); R39.15 Urgency of urination; Z13.9 Encounter for screening, unspecified
CPT/HCPCS: 99214

== ENCOUNTER → 2024-03-04 13:34 | Outpatient (BNVA) | payer OTHER, SELFPAY | PROVIDERS: PCP Internal Medicine; Visit Provider Urology | DX: N32.81 Overactive bladder (principal); N39.3 Stress incontinence (female) (male); R39.15 Urgency of urination | CPT/HCPCS: 81003; 99212 ==

== ENCOUNTER 2024-03-15 16:06 | Outpatient (REF) | payer OTHER, SELFPAY ==
[2024-03-15 16:48] LABS: Appearance Urine Clear; Color Urine Yellow; Glucose Urine UA Negative (Negative); Leukocyte Esterase Urine Large (3+) (Negative); Nitrite Urine Negative (Negative); PH 6.5 (5.0-9.0); UMIC TRIGGER UA YES; Urine Blood Small (1+) (Negative); Urine Ketones Negative (Negative); Urine Protein Negative (Neg-Trace)
[2024-03-15 17:31] LABS: Bacteria Urine Trace (None Seen); Hyaline Casts Urine 0-2 /LPF (0-2); Squamous Epithelial Cell Urine 0-2 /HPF (0-2); WBC Urine >50 /HPF (0-5)
== END 2024-03-15 16:07 | disposition home or self-care (01) ==
LOC: HO.LAB 16:06
PROVIDERS: PCP Internal Medicine; Visit Provider Internal Medicine
DX: R30.0 Dysuria (principal)
CPT/HCPCS: 81001; 87086; 87088; 87186

== ENCOUNTER → 2024-04-05 11:43 | Outpatient (BNVA) | payer SELFPAY | PROVIDERS: PCP Internal Medicine; Visit Provider Urology ==

== ENCOUNTER 2024-09-15 14:35 | Outpatient (REF) | payer MEDICAID, SELFPAY ==
[2024-09-15 15:39] LABS: Alanine Aminotransferase 20 U/L (0-31); Albumin Level 4.5 g/dL (3.5-5.0); Alkaline Phosphatase 51 U/L (39-117); Anion Gap 9 (12-20); Aspartate Amino Transferase 19 U/L (5-31); Bilirubin Total 0.6 mg/dL (0.0-1.0); Blood Urea Nitrogen 12 mg/dL (9-16); Calcium 8.9 mg/dL (8.4-10.2); Carbon Dioxide 26 mmol/L (22-29); Chloride 106 mmol/L (96-108); Estimated Glomerular Filt Rate > 60; Glucose Random 91 mg/dL (60-115); Potassium 3.9 mmol/L (3.3-5.1); Sodium 137 mmol/L (135-145); Total Protein 7.1 g/dL (6.5-8.0)
== END 2024-09-15 14:36 | disposition home or self-care (01) ==
LOC: HO.LAB 14:35
PROVIDERS: PCP Internal Medicine; Visit Provider Internal Medicine
DX: B35.1 Tinea unguium (principal); M20.11 Hallux valgus (acquired), right foot; M20.12 Hallux valgus (acquired), left foot
CPT/HCPCS: 36415; 80053

== ENCOUNTER 2024-09-25 17:50 | Emergency (ER) | payer MEDICAID, SELFPAY ==
--- NOTE | ~2024-09-25 | US_ITS ---
CLINICAL HISTORY: painful mass, ? abscess US Left breast, limited Comparison: None Findings: No sonographic evidence of abscess or fluid collection in the left breast area of interest at the 5 o'clock position. IMPRESSION: No findings of breast abscess or fluid collection. This document has been electronically signed by: Nigel Ku MD on 09/25/2024 19:35:27
[2024-09-25 17:57] VITALS: BP 125/83; PULSE 72; RESP 16; TEMP 37.2; O2SAT 98; BMI 31.2
--- NOTE | 2024-09-25 17:57 | ED_ITS ---
HPI - General Adult General Chief complaint: Skin/Abscess/Foreign Body Stated complaint: left breast lump Time Seen by Provider: 09/25/24 20:01 Source: patient, RN notes reviewed and old records reviewed Mode of arrival: ambulatory Limitations: no limitations History of Present Illness ED Provider: Ania HPI narrative: Patient is a 44-year-old female presenting to the ED with complaint of painful mass to left breast which she noticed today. States she is concerned it is an abscess. Denies any discharge or drainage. Denies fevers. Denies discharge from nipple. complaint: breast mass Onset (ago): hour(s) Related Data Previous Rx's ?Medication ?Instructions ?Recorded tolterodine 4 mg capsule,extended 4 mg PO BID #60 caps 04/05/24 release 24 hr Allergies Allergy/AdvReac Type Severity Reaction Status Date / Time NSAIDS (Non-Steroidal Allergy Severe ANGIOEDEMA Verified 09/25/24 18:02 Anti-Inflamma [NSAIDS] aspirin [ASPIRIN] Allergy Intermediate SWELLING, Verified 09/25/24 18:02 anaphylaxis latex [LATEX] Allergy Intermediate RASH Verified 09/25/24 18:02 metronidazole Allergy rash Verified 09/25/24 18:02 Review of Systems Review of Systems: As per HPI Yes all other systems are reviewed and are negative Constitutional: Constitutional: Reports as per HPI PMFSH Past Medical History Medical History Stress incontinence, female Ruptured cyst of ovary Surgical History Hx of dilation and curettage Hx of tubal ligation History of loop electrical excision procedure (LEEP) Family History Family History Paternal Grandmother Colon cancer Social History Social History Alcohol intake: never Patient Tobacco Use Status: Never used Tobacco Do you have a plan to hurt others: No Plan Sexual orientation: Straight/Heterosexual Gender identity: Female Physical Exam ED Vital Signs: Vital Signs - 24 hr 09/25/24 17:57 Temperature 98.9 F Pulse Rate 72 Respiratory Rate 16 Blood Pressure 125/83 Pulse Oximetry 98 Oxygen Delivery Method Room Air BMI result Body Mass Index 31.2 Vital signs have been reviewed and appear to be correct. Blood pressure normal. Heart rate normal. Respiratory rate normal. Temperature normal. Oxygen saturation normal. Const General: cooperative, healthy appearing and no acute distress Orientation/consciousness: oriented to person, oriented to place, oriented to time and patient oriented x3 Limitations: no limitations HENMT Head: Yes normocephalic and Yes atraumatic Ears: external ears normal General nose exam: Normal external nose present Face and sinus: Yes face symmetric Mouth: oropharynx normal and moist mucous membranes Throat: Yes uvula midline Eyes Pupils: Equal, round and reactive pupils present Neck Neck: Yes normal visual inspection and Yes supple Chest Other: Exam chaperoned by SOPHIA Mcintyre Chest palpation & inspection: normal inspection of the chest Breast/axilla palpation: no axillary lymphadenopathy and abnormal palpation of the breast left lower outer mass, tenderness and areola normal; Negative for nipple discharge Resp Effort & Inspection: normal respiratory effort and able to speak in complete sentences Auscultation: clear to auscultation bilaterally Cardio Rate: regular rate Rhythm: regular rhythm Heart sounds: S1 normal heart sound present and S2 normal heart sound present GI Palpation (GI): Soft to palpation and nontender Auscultation: normoactive bowel sounds General: Yes no CVA tenderness Back/Spine/Pelvis Back: no CVA tenderness Skin General skin exam: elasticity normal and turgor normal Neuro General: oriented to person, oriented to place, oriented to time, patient orient ed x3, moves all extremities, no focal motor deficits and CN's II-XI intact bilaterally Cranial nerves: Yes Equal, round and reactive pupils present Cognition (Neuro): normal cognition Extrem General: Yes full ROM, Yes no pedal edema and Yes no calf tenderness Psych Mental Status: mental status grossly normal Affect: normal affect Thought process: Normal thought process present Medical Decision Making Medical Decision Making MDM Narrative: Patient is a 44-year-old female presenting to the ED with complaint of painful mass to left breast which she noticed today. On exam patient is awake, A+Ox3, VS WNL, afebrile, normal neurological exam without focal deficits, physical exam findings as above. Given reported symptoms and physical exam findings, initial differential includes but is not limited to abscess, mass. Ultrasound notable for no abscess or fluid collection. My interpretation is in agreement with the radiologist's interpretation. Review of mammogram findings from January of 2024 note scattered areas of fibroglandular density with no significant masses, calcifications or other abnormalities. Will refer patient to OBGYN for further evaluation and management. Return precautions discussed. Patient verbalized understanding of and agreement with plan. Differential Diagnosis Differential Diagnoses: The differential diagnosis associated with the presentation includes As per [place] Independent Interpretation I performed an independent interpretation of an: Ultrasound Interpretation: No abscess or fluid collection left breast. Radiology Impression Discussion of test interpretation with radiology: I have reviewed the radiologist's reading. Radiologist Impression: US Left breast, limited Comparison: None Findings: No sonographic evidence of abscess or fluid collection in the left breast area of interest at the 5 o'clock position. IMPRESSION: No findings of breast abscess or fluid collection. External Record Review External record reviewed: Inpatient record, Office record and Outpatient record Discharge Plan Discharge Clinical Impression: Breast mass, left Patient Disposition: Home, Self-Care Instructions: Breast Mass (ED) Additional Instructions: You were evaluated in the emergency department today for a breast mass. Your ultrasound did not show evidence of an abscess or fluid collection. Call your DESIZING MACHINE OFFBEARER as soon as possible for a follow up exam as you will likely need additional imaging. Return to the emergency department if you develop new redness, swelling, drainage, fever, or any other new or concerning symptoms. Prescriptions: No Action tolterodine 4 mg capsule,extended release 24hr 4 mg PO BID Qty: 60 5RF Referrals: Nelly Malone CNM [Certified Nurse Nicker And Breaker] - 1 week (left breast mass) Print Language: Montenegrin
[2024-09-25 20:34] VITALS: BP 125/83; PULSE 72; RESP 16; TEMP 37.2; O2SAT 98
== END 2024-09-25 20:51 | disposition home or self-care (01) ==
LOC: HO.ED 20:52
PROVIDERS: Emergency Provider Emergency Medicine Emergency Medical Services; PCP Internal Medicine
DX: N63.20 Unspecified lump in the left breast, unspecified quadrant (principal)
CPT/HCPCS: 76642; 99282; 99284

== ENCOUNTER → 2024-09-25 18:00 | Outpatient (BNV) | payer MEDICAID, SELFPAY | PROVIDERS: Emergency Provider Emergency Medicine Emergency Medical Services; PCP Internal Medicine; Visit Provider Radiology Diagnostic Radiology | DX: N63.20 Unspecified lump in the left breast, unspecified quadrant (principal) | CPT/HCPCS: 76642 ==

== ENCOUNTER 2024-10-06 13:24 | Outpatient (REF) | payer MEDICAID, SELFPAY | END 2024-10-06 13:25 | disposition home or self-care (01) | LOC: HO.LAB 13:24 | PROVIDERS: PCP Internal Medicine; Visit Provider Advanced Practice Midwife | DX: Z01.419 Encounter for gynecological examination (general) (routine) without abnormal findings (principal) | CPT/HCPCS: 81515; 87491; 87591; 99396; 99459 ==

== ENCOUNTER 2024-10-06 13:24 | Outpatient (AMB) | payer MEDICAID, SELFPAY ==
--- NOTE | 2024-10-06 13:29 | MHC.OFFVIS ---
Vital Signs 10/06/24 13:31 Height 5 ft 4 in Weight 169 lb BMI 29.0 BP 110/72 Intake Visit Reasons: Annual/Breast pain/do not r/s Intake Note: 12/21 asc-h 02/21 colpo cin1 3 david 3 09/22 colpo david 3 10/22 leep david 3 Refrigeration Engine Operator Required: No Allergies NSAIDS (Non-Steroidal Anti-Inflamma [NSAIDS] Allergy (Severe, Verified 10/06/24 13:31) ANGIOEDEMA aspirin [ASPIRIN] Allergy (Intermediate, Verified 10/06/24 13:31) SWELLING, anaphylaxis latex [LATEX] Allergy (Intermediate, Verified 10/06/24 13:31) RASH metronidazole Allergy (Verified 10/06/24 13:31) rash Is last menstrual period known: Yes Last menstrual period: 09/06/24 HPI Comments Details: She is a premenopausal woman presenting for annual examination. 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 Exam was normal. She no longer feels a lump. She denies any injuries to the area, or previous surgeries, no nipple discharge. Regular monthly menses. Currently is sexually active. She denies vaginal itching and irritation. STI screening offered; she accepts,. History of TL. She tries to eat healthy and stays active with exercise. Denies family history of breast or ovarian. FH colon cancer. Last pap smear 2023, negative. Mammogram: 2023. [facility] Medical History Stress incontinence, female Ruptured cyst of ovary Surgical History Hx of dilation and curettage Hx of tubal ligation History of loop electrical excision procedure (LEEP) Family History Paternal Grandmother Colon cancer Social History Alcohol intake: never Patient Tobacco Use Status: Never used Tobacco Sexual orientation: Straight/Heterosexual Gender identity: Female Female Reproductive History Menstrual Age of Menarche: 13 Date of last menstrual period: 09/06/24 control method: permanent sterilization Permanent Sterilization: BTL Total pregnancies: 2 Full term: 2 Number of Living Children: 2 Date of last pap smear: 09/23/23 (neg pap and hpv) History of abnormal pap smear: Yes (see intake note) Date of Mammogram: 02/06/24 (Birad 1) Review of Systems Const All systems reviewed & are unremarkable except as noted in HPI and below Reports as per HPI Eyes Reports no additional complaints ENT Reports no additional complaints Card Reports no additional complaints Resp Reports no additional complaints GI Reports as per HPI and Reports no additional complaints Reports as per HPI Musc Reports no additional complaints Skin/Breast Reports as per HPI Neuro Reports no additional complaints Psych Reports no additional complaints Endo Reports no additional complaints Nitin/Lymph Reports no additional complaints Aller/Immun Reports no additional complaints Physical Exam Vital Signs: Last Vital Signs BP 110/72 10/06/24 13:31 BMI result Body Mass Index 29.0 Const General: cooperative, healthy appearing, no acute distress, well developed and alert Orientation/consciousness: patient oriented x3 HEENT Head: Yes normal to inspection Eyes General: appearance normal, both eyes and all related structures Neck Neck: Yes normal visual inspection Thyroid: Thyroid normal Chest Chest palpation & inspection: normal inspection of the chest and other (no puckering, dimpling, peau de orange, retraction, discharge, masses) Breast/axilla inspection: normal inspection of the breasts Breast/axilla palpation: normal palpation of the breasts Resp Effort & Inspection: normal respiratory effort GI Inspection: Yes normal to inspection Palpation (GI): Soft to palpation Rectal Exam - Female: deferred General: Yes bladder normal to palpation External Female Exam: normal external appearance and normal appearance of the urethra Speculum Exam - Vagina: normal appearance of the vagina, normal palpation and normal vaginal discharge Speculum Exam - Cervix: normal appearance of the cervix, normal palpation and Other cervical findings present (Post LEEP appearance) Bimanual exam- vagina & uterus: normal bimanual exam, normal palpation, uterine size normal, bladder normal to palpation, normal palpation and non-tender Bimanual Exam- Adnexa, other: no masses Skin General skin exam: no rashes or lesions noted Rashes: no rashes Neuro General: patient oriented x3 Cognition (Neuro): normal cognition Extrem General: Yes normal to inspection Psych Attitude: cooperative Thought process: Normal thought process present Assessment & Plan Assessment & Plan (1) Encounter for well woman exam with routine gynecological exam: Code(s): Z01.419 - Encounter for gynecological examination (general) (routine) without abnormal findings Category: Medical Plan Discussed: Current recommendations for pap smears per ASCCP guidelines. Breast awareness and periodic breast exams. Mammogram yearly. Mammogram ordered. Reassured normal exam today, advised to call if any further concerns with her breast. BV GC and chlamydia screening all obtained today, await results for plan of care. Maintain a healthy lifestyle including a well balanced diet and routine exercise. Colonoscopy >45, or at risk sooner. Patient verbalizes understanding and agrees to the plan of care. She was given opportunity to ask questions and all questions were answered to the best of my ability. RTO in one year for annual assistant professor of life sciences examination. This note is constructed using voice recognition software. While every effort has been made to ensure accuracy, video and sound recorder errors may have been included. Orders: Orders MM tomosynthesis screening BI Today Z12.31 - Encounter for screening mammogram for malignant neoplasm of breast Bacterial Vaginosis Panel Today Z20.2 - Contact with and (suspected) exposure to infections with a predominantly sexual mode of transmission CT NG by PCR Today Z20.2 - Contact with and (suspected) exposure to infections with a predominantly sexual mode of transmission Coding Level of Care Code Est Pt Prev Care 40-64y(37387) Diagnoses Encounter for well woman exam with routine gynecological exam Z01.419
[2024-10-06 13:31] VITALS: BP 110/72; BMI 29.0
== END 2024-10-06 13:58 | disposition home or self-care (01) ==
LOC: HO.HWS 13:24
PROVIDERS: PCP Internal Medicine; Visit Provider Advanced Practice Midwife
DX: Z01.419 Encounter for gynecological examination (general) (routine) without abnormal findings (principal)
CPT/HCPCS: 99396; 99459

== ENCOUNTER 2024-10-06 13:53 | Outpatient (REF) | payer MEDICAID, SELFPAY ==
[2024-10-06 21:46] LABS: Bacterial Vaginosis PCR NEGATIVE (Negative); Candida Group PCR NOT DETECTED (Not Detect); Candida glab krusei PCR NOT DETECTED (Not Detect); Trichomonas vaginalis PCR NOT DETECTED (Not Detect)
[2024-10-06 22:39] LABS: CT PCR NOT DETECTED (Not Detect.); NG PCR NOT DETECTED (Not Detect.)
== END 2024-10-06 13:54 | disposition home or self-care (01) ==
LOC: HO.LNP 13:53
PROVIDERS: Visit Provider Advanced Practice Midwife
DX: Z20.2 Contact with and (suspected) exposure to infections with a predominantly sexual mode of transmission (principal)
CPT/HCPCS: 81515; 87491; 87591

== ENCOUNTER 2024-12-03 15:19 | Outpatient (AMB) | payer MEDICAID, SELFPAY ==
--- NOTE | 2024-12-03 15:19 | A.OFFVIS_ITS ---
Intake Visit Reasons: follow up Intake Note: Patient presents today for telehealth follow up Meds: oxybutynin, tolterodine Allergies to Antibiotic: No Known Allergies Blood Thinner: None Switchboard Inspector Required: No Switchboard Inspector Services: Switchboard Inspector Offered & Declined Accompanied by: Self / Same As Patient Allergies NSAIDS (Non-Steroidal Anti-Inflamma (NSAIDS) Allergy (Severe, Verified 12/03/24 15:22) ANGIOEDEMA aspirin (ASPIRIN) Allergy (Intermediate, Verified 12/03/24 15:22) SWELLING, anaphylaxis latex (LATEX) Allergy (Intermediate, Verified 12/03/24 15:22) RASH metronidazole Allergy (Verified 12/03/24 15:22) rash HPI Comments Details: 12/03/24-- History of Present Illness - The patient is a 44-year-old female presenting with urinary incontinence. - Reports of urinary leakage during activities such as laughing or applying pressure, indicating stress urinary incontinence. - Previous physical therapy was undertaken a couple of years ago for this condition. - previous urodynamics showed a mixed picture. Both Stress and urge component to her voiding dysfunction. - she has been on anticholinergic therapy for the overactive bladder symptoms which have not controlled her urinary leakage in she is leaking more in situations including coughing, laughing and exercising. Discussion Notes We discussed the patient's ongoing issues with urinary incontinence. I explained the potential benefits of a urethral bulking procedure, which involves injecting gel/bulkamid at the proximal urethra.I have discussed the risks of bulking injection to the proximal urethra to include but not limited to urine retention requiring a brewster catheter, need to repeat the procedure, hematuria, and urgency. This procedure is performed as an outpatient service, and I informed the patient about the possibility of needing a pediatric catheter post-procedure if she is unable to urinate. I assured the patient that follow-up would be conducted to assess improvement and determine if further injections are necessary. [facility] Medical History Stress incontinence, female Ruptured cyst of ovary Surgical History Hx of dilation and curettage Hx of tubal ligation History of loop electrical excision procedure (LEEP) Family History Paternal Grandmother Colon cancer Social History Alcohol intake: never Patient Tobacco Use Status: Never used Tobacco Sexual orientation: Straight/Heterosexual Gender identity: Female Female Reproductive History Menstrual Age of Menarche: 13 Review of Systems Const All systems reviewed & are unremarkable except as noted in HPI and below Reports no additional complaints Eyes Reports no additional complaints ENT Reports no additional complaints Card Reports no additional complaints Resp Reports no additional complaints GI Reports no additional complaints Reports as per HPI Musc Reports no additional complaints Skin/Breast Reports system reviewed and no additional complaints, except as documented Neuro Reports no additional complaints Psych Reports no additional complaints Endo Reports no additional complaints Nitin/Lymph Reports no additional complaints Aller/Immun Reports no additional complaints Telehealth Telehealth Telehealth Platform: [facility] Location of provider rendering services: practice address Location of patient: address on file Patient Identification confirmed using: Name, : Yes Telehealth method: video Patient verbally consented to treatment: Yes Patient verbally consented to billing insurance company: Yes Patient informed of any privacy concerns related to visit: Yes Assessment & Plan Assessment & Plan (1) Stress incontinence, female: Code(s): N39.3 - Stress incontinence (female) (male) Category: Medical (2) Intrinsic sphincter deficiency (ISD): Code(s): N36.42 - Intrinsic sphincter deficiency (ISD) Category: Medical Plan Bulkamid. Urethral bulking, cystoscopy Patient Instructions: The patient had an opportunity to ask questions regarding treatment plan. The patient expressed understanding and agreement with the above treatment plan. The patient is aware they should contact our office by phone for worsening of their current condition or the appearance of new symptoms. Compliance is encouraged with any medications and followup testing that is ordered. It is a privilege to be allowed the opportunity to participate in the urologic care of your patient. If you have any questions or concerns regarding treatment for the above conditions please do not hesitate to contact me. The office telephone contact is [phone]. This note is constructed in part using voice recognition software. While every effort has been made to ensure accuracy bundler errors may have been included. Yours sincerely, Jeffrey Braswell MD Scribe Plan - Not visible on output: Patient was informed and verbally consented to the use of an ambient scribe for clinic note documentation during this visit. Coding Level of Care Code Tele Est Pt Level 4 (69173) Diagnoses Stress incontinence, female N39.3 Intrinsic sphincter deficiency (ISD) N36.42
== END 2024-12-03 16:45 | disposition home or self-care (01) ==
LOC: HO.HUSH 15:19
PROVIDERS: PCP Internal Medicine; Visit Provider Urology
DX: N39.3 Stress incontinence (female) (male) (principal); N36.42 Intrinsic sphincter deficiency (ISD)
CPT/HCPCS: 99214

== ENCOUNTER 2024-12-28 07:09 | Day surgery (SDC) | payer MEDICAID, SELFPAY ==
--- NOTE | 2024-12-27 11:51 | P.CONAN_ITS ---
Documented by User: Chiquis Fox NP 12/27/24 11:52 HPI - Anesthesia Eval Consult details Narrative: 44yo F for Cystoscopy with Bulkamid PMFSH Active Problems Active Problems: All Active Problems Intrinsic sphincter deficiency (ISD) (Acute) Encounter for well woman exam with routine gynecological exam (Acute) Urinary urgency (Acute) Detrusor overactivity (Acute) Pelvic pain (Acute) Dyspareunia in female (Acute) PID (pelvic inflammatory disease) (Acute) Sebaceous cyst of labia (Acute) Stress incontinence, female (Acute) Abnormal uterine bleeding (AUB) (Acute) Past Medical History Medical History Stress incontinence, female Ruptured cyst of ovary Family History Family History Paternal Grandmother Colon cancer Surgical History Surgical History Hx of dilation and curettage Hx of tubal ligation History of loop electrical excision procedure (LEEP) Social History Social History Alcohol intake: never Patient Tobacco Use Status: Never used Tobacco Use of substances other than those prescribed or required for medical reasons: No Are you DNR?: No Advance Directives: No Advance Directives Information Provided: Yes Patient : No : No Poor oral hygiene: No Sexual orientation: Straight/Heterosexual Gender identity: Female Meds Allergies Allergy/AdvReac Type Severity Reaction Status Date / Time NSAIDS (Non-Steroidal Allergy Severe ANGIOEDEMA Verified 12/03/24 15:22 Anti-Inflamma (NSAIDS) aspirin (ASPIRIN) Allergy Intermediate SWELLING, Verified 12/03/24 15:22 anaphylaxis latex (LATEX) Allergy Intermediate RASH Verified 12/03/24 15:22 metronidazole Allergy rash Verified 12/03/24 15:22 Assessment and Plan Assessment Anesthesia Assessment: Chart Reviewed Documented by User: Ana Cristina Giraldo MD 12/28/24 08:04 [facility] Past Medical History Medical History Stress incontinence, female Ruptured cyst of ovary Family History Family History Paternal Grandmother Colon cancer Family history of problems with anesthesia: No Surgical History Surgical History Hx of dilation and curettage Hx of tubal ligation History of loop electrical excision procedure (LEEP) History of Problems with Anesthesia: No Social History Social History Alcohol intake: never Patient Tobacco Use Status: Never used Tobacco Use of substances other than those prescribed or required for medical reasons: No Are you DNR?: No Advance Directives: No Advance Directives Information Provided: Yes Patient : No : No Poor oral hygiene: No Sexual orientation: Straight/Heterosexual Gender identity: Female Meds Allergies Allergy/AdvReac Type Severity Reaction Status Date / Time NSAIDS (Non-Steroidal Allergy Severe ANGIOEDEMA Verified 12/03/24 15:22 Anti-Inflamma (NSAIDS) aspirin (ASPIRIN) Allergy Intermediate SWELLING, Verified 12/03/24 15:22 anaphylaxis latex (LATEX) Allergy Intermediate RASH Verified 12/03/24 15:22 metronidazole Allergy rash Verified 12/03/24 15:22 Exam Airway Mallampati Class: II TM Dist: >3cm Neck ROM: Full Heart: rrr Lungs: cta Assessment and Plan Assessment Anesthesia Assessment: Anesthesia Plan Discussed Final Anesthetic Review Family History of Problems with Anesthesia: No History of Problems with Anesthesia: No NPO: Yes ASA Class: II Final Preanesthetic Review: No Changes in Pt Med Stat, Meds/Allgs Chart Reviewed, Consent Obtained/Reviewed and Anes Risks/Benef Reviewed Patient Risk: Low Procedure Risk: Low Anesthetic Plan Anesthetic Plan: GA Disposition: Standard PACU Documented by User: Gerry Diaz MD 12/28/24 08:05 [facility] Past Medical History Medical History Stress incontinence, female Ruptured cyst of ovary Cognitive capacity: normal Functional capacity: independent ambulation Family History Family History Paternal Grandmother Colon cancer Family history of problems with anesthesia: No Surgical History Surgical History Hx of dilation and curettage Hx of tubal ligation History of loop electrical excision procedure (LEEP) History of Problems with Anesthesia: No Social History Social History Alcohol intake: never Patient Tobacco Use Status: Never used Tobacco Use of substances other than those prescribed or required for medical reasons: No Are you DNR?: No Advance Directives: No Advance Directives Information Provided: Yes Patient : No : No Poor oral hygiene: No Sexual orientation: Straight/Heterosexual Gender identity: Female Meds Allergies Allergy/AdvReac Type Severity Reaction Status Date / Time NSAIDS (Non-Steroidal Allergy Severe ANGIOEDEMA Verified 12/03/24 15:22 Anti-Inflamma (NSAIDS) aspirin (ASPIRIN) Allergy Intermediate SWELLING, Verified 12/03/24 15:22 anaphylaxis latex (LATEX) Allergy Intermediate RASH Verified 12/03/24 15:22 metronidazole Allergy rash Verified 12/03/24 15:22 Exam Exam Date and Time: 12/28/2024 Airway Mallampati Class: II TM Dist: >3cm Neck ROM: Full Loose/Missing/Broken Teeth: No (normal dentition with braces) Heart: rrr Lungs: cta Other: normal Assessment and Plan Final Anesthetic Review Family History of Problems with Anesthesia: No History of Problems with Anesthesia: No NPO: Yes
[2024-12-28] VITALS (7 sets, daily range): BP systolic 105–124; BP diastolic 63–73; PULSE 61–82; RESP 14–18; TEMP 36.1–36.8; O2SAT 97–100; BMI 29.1
[2024-12-28] MEDS: Lactated Ringers 1,000 ML 100 ML IVCONT (07:54)
--- NOTE | 2024-12-28 08:16 | MHC.SHP ---
Pre-Procedural Eval Section A - 24 Hr Update-Section A only Date of Service: 12/28/24 The patient is an INPATIENT: No The patient has been examined within 24 hours of the surgical procedure. The History & Physical has been completed within 30 days and I have reviewed it.: Yes Section B - Complete if H&P > 30 days Chief Complaint: Stress incontinence (female) (male) Allergies: Allergies Allergy/AdvReac Type Severity Reaction Status Date / Time NSAIDS (Non-Steroidal Allergy Severe ANGIOEDEMA Verified 12/03/24 15:22 Anti-Inflamma (NSAIDS) aspirin (ASPIRIN) Allergy Intermediate SWELLING, Verified 12/03/24 15:22 anaphylaxis latex (LATEX) Allergy Intermediate RASH Verified 12/03/24 15:22 metronidazole Allergy rash Verified 12/03/24 15:22 Plan I have reviewed the history and physical and performed a pertinent physical examination on my patient. No changes have occurred unless specified. Cystoscopy Bulkamid, I have discussed the risks of bulking injection to the proximal urethra to include but not limited to urine retention requiring a brewster catheter, need to repeat the procedure, hematuria, and urgency. Time Spent With Patient Time: Total time managing care of this patient today ____ minutes.
--- NOTE | 2024-12-28 08:16 | W.PM.OPN ---
Operative Note Operative Note Date of Service: 12/28/24 Narrative: Preop diagnosis: Intrinsic sphincter deficiency Postop diagnosis: Intrinsic sphincter deficiency Procedure: Cystoscopy urethral bulking with bulkamid system at the proximal urethra Surgeon: Dr. Jeffrey Braswell Details of procedure: The patient was brought into the operating room placed on the OR table in supine position anesthesia was administered. Antibiotics confirmed. The patient was placed in lithotomy position prepped and draped in the usual sterile fashion. Safety time-out was done. A 14 [place] straight catheter was used to send urine for culture. 2% lidocaine jelly was inserted transurethrally 10 mL. The 22 fr 11 cm cystoscope, with 0 degree lens was passed transurethrally, the light cord was placed in the 6 o'clock position. The bladder was filled with sterile water to 100 mL the bladder was visualized. With the sheath at the 5 o'clock position the needle was inserted to the 1 cm mary and 0.5 mL of gel was injected there was good bulking noted. This was repeated on the 7 o'clock position. The 2nd needle was inserted into the sheath and an injection was done at the 2 o'clock position and again at the 11 o'clock position. There was bulking of the mucosa noted with good coaptation. The patient tolerated the procedure and was taken to recovery in stable condition. Complication: none EBL: minimal (<5 mL) Drains: none
== END 2024-12-28 10:26 | disposition home or self-care (01) ==
PROVIDERS: PCP Internal Medicine; Visit Provider Urology
PROC: (CPT 51715; principal; 2024-12-28 08:40)
DX: N39.3 Stress incontinence (female) (male) (principal); N36.42 Intrinsic sphincter deficiency (ISD); N32.81 Overactive bladder; Z79.899 Other long term (current) drug therapy; Z88.6 Allergy status to analgesic agent; Z91.040 Latex allergy status; Z88.8 Allergy status to other drugs, medicaments and biological substances; Z98.890 Other specified postprocedural states
CPT/HCPCS: 51715; 87086; J0690; J2003; J2405; J2704; J3010; L8606

== ENCOUNTER → 2024-12-28 07:09 | Outpatient (BNV) | payer MEDICAID, SELFPAY | PROVIDERS: PCP Internal Medicine; Visit Provider Urology | DX: N36.42 Intrinsic sphincter deficiency (ISD) (principal) | CPT/HCPCS: 51715 ==

== ENCOUNTER → 2024-12-30 08:32 | Outpatient (BNVA) | payer SELFPAY | PROVIDERS: PCP Internal Medicine; Visit Provider Urology | DX: N39.3 Stress incontinence (female) (male) (principal) | CPT/HCPCS: 51798 ==

== ENCOUNTER → 2025-02-11 11:30 | Outpatient (BNV) | payer MEDICAID, SELFPAY | PROVIDERS: PCP Internal Medicine; Visit Provider Internal Medicine | DX: Z12.31 Encounter for screening mammogram for malignant neoplasm of breast (principal) | CPT/HCPCS: 77063; 77067 ==

== ENCOUNTER 2025-02-11 11:31 | Outpatient (REF) | payer SELFPAY ==
--- NOTE | ~2025-02-11 | MM_ITS ---
EXAMINATION: MM SCREENING DIGITAL BREAST TOMOSYNTHESIS, BILATERAL CLINICAL INFORMATION: Screening. Asymptomatic. COMPARISON: Mammography: Comparison is made with available priors TECHNIQUE: Digital breast mammography with tomosynthesis is performed in both the craniocaudal and mediolateral oblique views along with computer-aided detection (CAD). FINDINGS: There are scattered areas of fibroglandular density (ACR BI-RADS breast composition Category b). There are no significant masses, abnormal calcifications, or other abnormalities. MM/MM tomosynthesis screening BI IMPRESSION: No mammographic evidence of malignancy. ASSESSMENT: BI-RADS BI-RADS 1 - Negative RECOMMENDATION: Routine annual mammography screening. 1 year F/U This examination should not preclude the clinical evaluation of a suspicious palpable abnormality. This patient's information was entered into a reminder system with a target due date for their next mammogram. Electronically signed by: Martha Alejandra DO 02/15/2025 01:41 PM EDT
== END 2025-02-11 11:32 | disposition home or self-care (01) ==
LOC: HO.MAMMO 11:31
PROVIDERS: PCP Internal Medicine; Visit Provider Advanced Practice Midwife
DX: Z12.31 Encounter for screening mammogram for malignant neoplasm of breast (principal)
CPT/HCPCS: 77063; 77067

== ENCOUNTER 2025-03-07 10:47 | Outpatient (REF) | payer MEDICAID, SELFPAY ==
[2025-03-07 11:48] LABS: Resp Syncy Virus RNA Qual PCR NEGATIVE (Negative); SARS COV2 PCR INHOUSE NEGATIVE (Negative)
== END 2025-03-07 10:48 | disposition home or self-care (01) ==
LOC: HO.LAB 10:47
PROVIDERS: PCP Internal Medicine; Visit Provider Internal Medicine
DX: M20.12 Hallux valgus (acquired), left foot (principal); R10.13 Epigastric pain; J01.90 Acute sinusitis, unspecified; R11.10 Vomiting, unspecified
CPT/HCPCS: 87637

== ENCOUNTER 2025-04-01 15:27 | Outpatient (AMB) | payer MEDICAID, SELFPAY ==
--- NOTE | 2025-04-01 15:39 | MHC.OFFVIS ---
Intake Visit Reasons: Bulkamid follow up Intake Note: Patient presents today for a bulkamid follow up Urology Meds:None Allergies to Antibiotic:No Known Allergies Blood Thinner:None PVR:0ml Senior Infrastructure Architect Required: No Senior Infrastructure Architect Services: Senior Infrastructure Architect Offered & Declined Accompanied by: Self / Same As Patient Allergies NSAIDS (Non-Steroidal Anti-Inflamma (NSAIDS) Allergy (Severe, Verified 04/01/25 15:40) ANGIOEDEMA aspirin (ASPIRIN) Allergy (Intermediate, Verified 04/01/25 15:40) SWELLING, anaphylaxis latex (LATEX) Allergy (Intermediate, Verified 04/01/25 15:40) RASH metronidazole Allergy (Verified 04/01/25 15:40) rash Medication List - Last Reconciled 04/01/25 by Jeffrey Braswell MD No Known Home Meds HPI Comments Details: 04/01/25-- History of Present Illness The patient is a 45-year-old female presenting with recurrent urinary incontinence symptoms. She has a history of intrinsic sphincter deficiency stress urinary incontinence and underwent urethral bulking on December 28, 2024. Initially, post-procedure, she experienced good control over urine leakage. However, she reports a recurrence of symptoms, particularly leakage associated with sneezing and physical exertion at the gym. She experiences dribbling throughout the day, necessitating the use of pads, which are wet by the end of the day. The patient urinates approximately twice daily and is on her feet most of the day due to her work, which involves walking. Plan 1. Intrinsic Sphincter Deficiency Stress Urinary Incontinence - Plan to proceed with a transvaginal sling with mesh retropubic approach. - Schedule the out patient procedure in the operating room with a 23-hour admission. - A Brewster catheter will be left in place post-procedure and voiding trial prior to discharge. 12/03/24-- History of Present Illness - The patient is a 44-year-old female presenting with urinary incontinence. - Reports of urinary leakage during activities such as laughing or applying pressure, indicating stress urinary incontinence. - Previous physical therapy was undertaken a couple of years ago for this condition. - previous urodynamics showed a mixed picture. Both Stress and urge component to her voiding dysfunction. - she has been on anticholinergic therapy for the overactive bladder symptoms which have not controlled her urinary leakage in she is leaking more in situations including coughing, laughing and exercising. Discussion Notes We discussed the patient's ongoing issues with urinary incontinence. I explained the potential benefits of a urethral bulking procedure, which involves injecting gel/bulkamid at the proximal urethra.I have discussed the risks of bulking injection to the proximal urethra to include but not limited to urine retention requiring a brewster catheter, need to repeat the procedure, hematuria, and urgency. This procedure is performed as an outpatient service, and I informed the patient about the possibility of needing a pediatric catheter post-procedure if she is unable to urinate. I assured the patient that follow-up would be conducted to assess improvement and determine if further injections are necessary. [facility] Medical History Stress incontinence, female Ruptured cyst of ovary Surgical History Hx of dilation and curettage Hx of tubal ligation History of loop electrical excision procedure (LEEP) Family History Paternal Grandmother Colon cancer Social History Alcohol intake: never Patient Tobacco Use Status: Never used Tobacco Sexual orientation: Straight/Heterosexual Gender identity: Female Female Reproductive History Menstrual Age of Menarche: 13 Review of Systems Const All systems reviewed & are unremarkable except as noted in HPI and below Reports no additional complaints Eyes Reports no additional complaints ENT Reports no additional complaints Card Reports no additional complaints Resp Reports no additional complaints GI Reports no additional complaints Reports as per HPI Musc Reports no additional complaints Skin/Breast Reports system reviewed and no additional complaints, except as documented Neuro Reports no additional complaints Psych Reports no additional complaints Endo Reports no additional complaints Nitin/Lymph Reports no additional complaints Aller/Immun Reports no additional complaints Office Procedures Post Void Residual Post Residual Void Post Void Residual (PVR): 0 [id number] Void Residual by ultrasound Results AMB Urinalysis, Automated UA Leukoctes 0 Lorin/uL Last Edit by Elyssa Pina on 04/01/25 17:06 UA Nitrite Negative Last Edit by Elyssa Pina on 04/01/25 17:06 UA Urobilinogen 0.2 mg/dL Last Edit by Elyssa Pina on 04/01/25 17:06 UA Protein 0 mg/dL Last Edit by Elyssa Pina on 04/01/25 17:06 UA pH 6.5 Last Edit by Elyssa Pina on 04/01/25 17:06 UA Blood 0 [place]/uL Last Edit by Elyssa Pina on 04/01/25 17:06 UA Specific [place] 1.015 Last Edit by Elyssa Pina on 04/01/25 17:06 UA Ketone Positive Last Edit by Elyssa Pina on 04/01/25 17:06 UA Bilirubin 0 mg/dL Last Edit by Elyssa Pina on 04/01/25 17:06 UA Glucose 0 mg/dL Last Edit by Elyssa Pina on 04/01/25 17:06 Results Reviewed Results Reviewed: Laboratory Last Values Urine pH (Auto) 6.5 04/01/25 16:00 Specific [place] (Auto) 1.015 04/01/25 16:00 Urine Protein (Auto) 0 mg/dL 04/01/25 16:00 Glucose (UA)(Auto) 0 mg/dL 04/01/25 16:00 Urine Ketones (Auto) Positive 04/01/25 16:00 Urine Blood (Auto) 0 [place]/uL 04/01/25 16:00 Urine Nitrite (Auto) Negative 04/01/25 16:00 Urine Bilirubin (Auto) 0 mg/dL 04/01/25 16:00 Urine Urobilinogen (Auto) 0.2 mg/dL 04/01/25 16:00 Leukocyte Esterase (Auto) 0 Lorin/uL 04/01/25 16:00 Assessment & Plan Assessment & Plan (1) Stress incontinence, female: Code(s): N39.3 - Stress incontinence (female) (male) Category: Medical (2) Intrinsic sphincter deficiency (ISD): Code(s): N36.42 - Intrinsic sphincter deficiency (ISD) Category: Medical Plan Plan 1. Intrinsic Sphincter Deficiency Stress Urinary Incontinence - Plan to proceed with a transvaginal sling with mesh retropubic approach. - Schedule the out patient procedure in the operating room with a 23-hour admission. - A Brewster catheter will be left in place post-procedure and voiding trial prior to discharge. Orders: Orders AMB Urinalysis Automated 04/01/25 N39.3 - Stress incontinence (female) (male), R39.15 - Urgency of urination Patient Instructions: The patient had an opportunity to ask questions regarding treatment plan. The patient expressed understanding and agreement with the above treatment plan. The patient is aware they should contact our office by phone for worsening of their current condition or the appearance of new symptoms. Compliance is encouraged with any medications and followup testing that is ordered. It is a privilege to be allowed the opportunity to participate in the urologic care of your patient. If you have any questions or concerns regarding treatment for the above conditions please do not hesitate to contact me. The office telephone contact is [phone]. This note is constructed in part using voice recognition software. While every effort has been made to ensure accuracy wire splicer errors may have been included. Yours sincerely, Jeffrey Braswell MD Scribe Plan - Not visible on output: Patient was informed and verbally consented to the use of an ambient scribe for clinic note documentation during this visit. Coding Level of Care Code Est Pt Level 4 (73648) Diagnoses Stress incontinence, female N39.3 Intrinsic sphincter deficiency (ISD) N36.42 CPT Codes Post Residual Void - PVR CPT Code: 30680-Ybas Void Residual by ultrasound ([id number])
== END 2025-04-01 16:27 | disposition home or self-care (01) ==
LOC: HO.HUSH 15:27
PROVIDERS: PCP Internal Medicine; Visit Provider Urology
DX: N39.3 Stress incontinence (female) (male) (principal); R39.15 Urgency of urination

== ENCOUNTER → 2025-04-01 15:27 | Outpatient (BNVA) | payer MEDICAID, SELFPAY | PROVIDERS: PCP Internal Medicine; Visit Provider Urology | DX: N39.3 Stress incontinence (female) (male) (principal) | CPT/HCPCS: 51798; 81003; 99212 ==